=== PATIENT | male | born 1960 | race Caucasian/White ===

== ENCOUNTER → 2016-10-03 | Outpatient (CLI) | payer BC | LOC: MW.CHIM 07:40 | PROVIDERS: ATTEND Internal Medicine | DX: I10 Essential (primary) hypertension (principal); E11.9 Type 2 diabetes mellitus without complications; E29.1 Testicular hypofunction; N52.9 Male erectile dysfunction, unspecified | CPT/HCPCS: 36415; 80053; 80061; 83036; 84402; 84403; 85025; G0103 ==

== ENCOUNTER 2017-03-10 07:38 | Observation (INO) | payer BC ==
[2017-03-10] MEDS ORDERED: Sodium Chloride 0.9% 10 ML Syringe FLUSH PRN ×2 (07:47→10:42)
[2017-03-10] MEDS ORDERED: Nitroglycerin 0.4 MG Tab.SL SL STA (07:47)
[2017-03-10] MEDS ORDERED: Sodium Chloride 0.9% 2.5 ML Syringe FLUSH PRN ×3 (07:47→10:42)
[2017-03-10] MEDS ORDERED: Aspirin 81 MG Tab.Chew PO ONE (07:47)
[2017-03-10] MEDS ORDERED: Nitroglycerin 0.4 MG Tab.SL ONE (07:51)
[2017-03-10] MEDS ORDERED: Aspirin 81 MG Tab.Chew ONE (07:51)
[2017-03-10] MEDS ORDERED: Nitroglycerin 2% Oint 1 GM UD Packet TOP ONE (08:05)
--- NOTE | 2017-03-10 08:10 | EDM.PDOC ---
ED HPI GENERAL MEDICAL PROBLEM - General Chief Complaint: Chest Pain Stated Complaint: CHEST PAINS Time Seen by Provider: 03/10/17 07:57 - History of Present Illness INITIAL COMMENTS - FREE TEXT/NARRATIVE: HISTORY AND PHYSICAL: History of present illness: The patient is a 48-year-old male with a history of hypertension hypercholesterolemia and diabetes, insulin and oral medication controlled, with a history of 2 cardiac stents 20 years ago and who follows with our clinic physician, Dr. 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 The patient says that every morning he lifts weights every other day he writes his exercise bike, which he did this morning. When he woke he felt perfectly fine and then he did his exercises and again felt fine throughout the exercise. After he completed his exercise on the bike he got off and started experiencing the chest pressure midsternal nonradiating. It was associated with nausea but no vomiting and some shortness of breath. He says he has never experienced that before and does not have nitroglycerin at home. He says that when he has done his exercise the last few days he has not experienced this. He said the episode lasted about 30 minutes and when he arrived here he was having chest pain but on my interview he said discomfort was completely gone. He currently feels a little nauseated and internally upset but has no shortness of breath. He has had no recent upper respiratory infections or problems and has no pulmonary issues. He has been eating and drinking normally and has no GI issues. The patient denies any recent trauma leg pain swelling or any other systemic issues prior to this event. 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 Review of systems: As per history of present illness and below otherwise all systems reviewed and negative. Past medical history: As per history of present illness and as reviewed below otherwise noncontributory. Surgical history: As per history of present illness and as reviewed below otherwise noncontributory. Social history: No reported history of drug or alcohol abuse. Family history: As per history of present illness and as reviewed below otherwise noncontributory. Physical exam: Gen.: Well-developed well-nourished overweight male who is nontoxic and speaking clearly and easily in the ED. Vital signs of the note by me. HEENT: Atraumatic, normocephalic, negative for conjunctival pallor or scleral icterus, mucous membranes moist, throat clear, neck supple, nontender, trachea midline. Lungs: Clear to auscultation, breath sounds equal bilaterally, chest nontender. Heart: S1S2, regular, negative for clicks, rubs, or JVD. Abdomen: Soft, nondistended, nontender. Negative for masses or hepatosplenomegaly. Negative for costovertebral tenderness. Pelvis: Stable nontender. Genitourinary: Deferred. Rectal: Deferred. Extremities: Atraumatic, negative for cords or calf pain. Neurovascular unremarkable. No pedal edema or leg asymmetry Neuro: Awake, alert, oriented. Cranial nerves II through XII unremarkable. Cerebellum unremarkable. Motor and sensory unremarkable throughout. Exam nonfocal. Diagnostics: EKG chest x-ray CBC CMP INR troponin Therapeutics: IV O2 monitor aspirin, initially sublingual nitroglycerin was written for but the patient currently has no pain so we will hold, Nitropaste Please note that I have reviewed his labs today, BUN/creatinine and potassium, and if compared them with labs done over the last 2 years owing back to 2015. He is currently at his baseline for these numbers and there is no significant change when compared to these older blood tests. Patient continues to remain pain-free and his blood pressure has improved. I discussed all testing results with the patient and at bedside and the patient is agreeable for observation admission. I will discuss this case with Dr. Garcia and plan for admission Impression: Chest pain rule out ACS/episode of angina Definitive disposition and diagnosis as appropriate pending reevaluation and review of above. chest Pain Score (Numeric/FACES): 3 - Related Data Allergies Allergy/AdvReac Type Severity Reaction Status Date / Time Codeine Allergy Nervousness Uncoded 03/10/17 07:57 Home Meds: Home Meds Aspirin 1 tab PO DAILY 05/05/15 [History] ClonazePAM [KlonoPIN] 1 tab PO DAILY 05/05/15 [History] Escitalopram [Lexapro] 20 mg PO DAILY 05/05/15 [History] Lisinopril 1 tab PO DAILY 05/05/15 [History] atorvaSTATin [Lipitor] 1 tab PO DAILY 05/05/15 [History] glipiZIDE [Glucotrol XL] 10 mg PO BID 05/05/15 [History] metFORMIN HCl [Glucophage] 1,000 mg PO BID 05/05/15 [History] Insulin Aspart [NovoLOG] 0 unit SUBCUT ASDIRECTED 03/10/17 [History] Testosterone Cypionate [Depo-Testosterone] 0.5 ml IM WEEKLY 03/10/17 [History] Past Medical History Other HEENT History: Diminished hearing on RIGHT Cardiovascular History: Reports: High Cholesterol, Hypertension, Stents Other Musculoskeletal History: hx: Fracturing arm Other Neuro History: Right Carpal Tunnel Release Psychiatric History: Reports: Anxiety, Panic Attack Other Psychiatric History: past hx: panic attacks, since starte med regimen no problems Endocrine/Metabolic History: Reports: Diabetes, Type II - Past Surgical History Other Cardiovascular Surgeries/Procedures: 2 Stents placed about 20 yrs ago Other Musculoskeletal Surgeries/Procedures:: 3 Open Left knee surgeries, 2 Lt scopes, Right Knee Scope, Right open shoulder surgery, bilateral shoulder arthroscopies Social & Family History - Family History Family Medical History: Noncontributory - Recreational Drug Use Recreational Drug Use: No Drug Use in Last 12 Months: No ED ROS GENERAL - Review of Systems Review Of Systems: ROS reveals no pertinent complaints other than HPI. ED EXAM, GENERAL - Physical Exam Exam: See Below (See dictation) Course - Vital Signs Last Recorded V/S: Last Vital Signs Temp 36.2 C 03/10/17 07:38 Pulse 88 03/10/17 08:37 Resp 18 03/10/17 08:37 BP 148/73 H 03/10/17 08:37 Pulse Ox 95 03/10/17 08:37 - Orders/Labs/Meds Orders: Active Orders 24 hr Category Date Time Status Cardiac Monitoring [RC] . DIRECTED Care 03/10/17 07:47 Active EKG Documentation Completion [RC] STAT Care 03/10/17 07:47 Active Oxygen Therapy [RC] ASDIRECTED Care 03/10/17 07:47 Active Pulse Oximetry [RC] ASDIRECTED Care 03/10/17 07:47 Active Chest 1V Frontal [CR] Stat Exams 03/10/17 07:47 Taken Sodium Chloride 0.9% [Saline Flush] Med 03/10/17 07:47 Active 10 ml FLUSH ASDIRECTED PRN Sodium Chloride 0.9% [Saline Flush] Med 03/10/17 07:47 Active 2.5 ml FLUSH ASDIRECTED PRN Sodium Chloride 0.9% [Saline Flush] Med 03/10/17 07:47 Active 2.5 ml FLUSH ASDIRECTED PRN Saline Lock Insert [OM.PC] Stat Oth 03/10/17 07:47 Ordered Medication Orders Sodium Chloride (Saline Flush) 2.5 ml FLUSH ASDIRECTED PRN PRN Reason: Keep Vein Open Sodium Chloride (Saline Flush) 10 ml FLUSH ASDIRECTED PRN PRN Reason: Keep Vein Open Sodium Chloride (Saline Flush) 2.5 ml FLUSH ASDIRECTED PRN PRN Reason: Keep Vein Open Labs: Laboratory Tests 03/10/17 03/10/17 03/10/17 Range/Units 07:45 07:45 07:45 WBC 9.79 (4.0-11.0) K/uL RBC 5.79 (4.50-5.90) M/uL Hgb 17.7 H (13.0-17.0) g/dL Hct 51.0 H (38.0-50.0) % MCV 88.1 (80.0-98.0) fL MCH 30.6 (27.0-32.0) pg MCHC 34.7 (31.0-37.0) g/dL RDW Std Deviation 44.9 (28.0-62.0) fl RDW Coeff of Narda 14 (11.0-15.0) % Plt Count 268 (150-400) K/uL MPV 10.10 (7.40-12.00) fL Neut % (Auto) 61.4 (48.0-80.0) % Lymph % (Auto) 21.5 (16.0-40.0) % [place] % (Auto) 11.8 (0.0-15.0) % Eos % (Auto) 4.4 (0.0-7.0) % Baso % (Auto) 0.9 (0.0-1.5) % Neut # (Auto) 6.0 H (1.4-5.7) K/uL Lymph # (Auto) 2.1 (0.6-2.4) K/uL [place] # (Auto) 1.2 H (0.0-0.8) K/uL Eos # (Auto) 0.4 (0.0-0.7) K/uL Baso # (Auto) 0.1 (0.0-0.1) K/uL Nucleated RBC % 0.0 /100WBC Nucleated RBCs # 0 K/uL INR 1.06 (0.86-1.11) Sodium 138 (136-146) mmol/L Potassium 5.4 H (3.5-5.1) mmol/L Chloride 107 (98-110) mmol/L Carbon Dioxide 22 (21-31) mmol/L BUN 28 H (6.0-23.0) mg/dL Creatinine 1.7 H (0.6-1.5) mg/dL Est Cr Clr Drug Dosing 45.82 mL/min Estimated GFR (MDRD) 41.6 ml/min Glucose 201 H (60-110) mg/dL Calcium 9.9 (8.8-10.8) mg/dL Total Bilirubin 0.4 (0.1-1.5) mg/dL AST 26 (5-40) IU/L ALT 31 (8-54) IU/L Alkaline Phosphatase 46 (40-150) Troponin I (0.0-0.29) NG/ML Total Protein 7.1 (6.0-8.0) g/dL Albumin 4.0 (3.5-5.0) g/dL Globulin 3.1 (2.0-3.5) g/dL Albumin/Globulin Ratio 1.3 (1.3-2.8) 03/10/17 Range/Units 07:45 WBC (4.0-11.0) K/uL RBC (4.50-5.90) M/uL Hgb (13.0-17.0) g/dL Hct (38.0-50.0) % MCV (80.0-98.0) fL MCH (27.0-32.0) pg MCHC (31.0-37.0) g/dL RDW Std Deviation (28.0-62.0) fl RDW Coeff of Narda (11.0-15.0) % Plt Count (150-400) K/uL MPV (7.40-12.00) fL Neut % (Auto) (48.0-80.0) % Lymph % (Auto) (16.0-40.0) % [place] % (Auto) (0.0-15.0) % Eos % (Auto) (0.0-7.0) % Baso % (Auto) (0.0-1.5) % Neut # (Auto) (1.4-5.7) K/uL Lymph # (Auto) (0.6-2.4) K/uL [place] # (Auto) (0.0-0.8) K/uL Eos # (Auto) (0.0-0.7) K/uL Baso # (Auto) (0.0-0.1) K/uL Nucleated RBC % /100WBC Nucleated RBCs # K/uL INR (0.86-1.11) Sodium (136-146) mmol/L Potassium (3.5-5.1) mmol/L Chloride (98-110) mmol/L Carbon Dioxide (21-31) mmol/L BUN (6.0-23.0) mg/dL Creatinine (0.6-1.5) mg/dL Est Cr Clr Drug Dosing mL/min Estimated GFR (MDRD) ml/min Glucose (60-110) mg/dL Calcium (8.8-10.8) mg/dL Total Bilirubin (0.1-1.5) mg/dL AST (5-40) IU/L ALT (8-54) IU/L Alkaline Phosphatase (40-150) Troponin I < 0.10 (0.0-0.29) NG/ML Total Protein (6.0-8.0) g/dL Albumin (3.5-5.0) g/dL Globulin (2.0-3.5) g/dL Albumin/Globulin Ratio (1.3-2.8) Meds: Medications Generic Name Dose Route Start Last Admin Trade Name Freq PRN Reason Stop Dose Admin Sodium Chloride 2.5 ml 03/10/17 07:47 Saline Flush FLUSH ASDIRECTED PRN Keep Vein Open Sodium Chloride 10 ml 03/10/17 07:47 Saline Flush FLUSH ASDIRECTED PRN Keep Vein Open Sodium Chloride 2.5 ml 03/10/17 07:47 Saline Flush FLUSH ASDIRECTED PRN Keep Vein Open Discontinued Medications Generic Name Dose Route Start Last Admin Trade Name Freq PRN Reason Stop Dose Admin Aspirin 324 mg 03/10/17 07:47 03/10/17 07:54 Aspirin PO 03/10/17 07:48 324 mg ONETIME ONE Administration Aspirin Confirm 03/10/17 07:51 03/10/17 08:15 Aspirin Administered 03/10/17 07:52 Not Given Dose 324 mg .ROUTE .STK-MED ONE Nitroglycerin 0.4 mg 03/10/17 07:47 Nitrostat SL 03/10/17 07:48 Q5M STA Nitroglycerin Confirm 03/10/17 07:51 03/10/17 08:15 Nitrostat Administered 03/10/17 07:52 Not Given Dose 1.2 mg .ROUTE .STK-MED ONE Nitroglycerin 1 gm 03/10/17 08:05 03/10/17 08:13 Nitro-Bid 2% TOP 03/10/17 08:06 1 gm ONETIME ONE Administration Departure - Departure Time of Disposition: 09:02 Disposition: Refer to Observation Condition: Good Clinical Impression: Acute coronary syndrome - Discharge Information Referrals: Richard Garcia DO [Primary Care Provider] - Forms: ED Department Discharge - My Orders Last 24 Hours: My Active Orders 03/10/17 07:47 Cardiac Monitoring [RC] . DIRECTED EKG Documentation Completion [RC] STAT Oxygen Therapy [RC] ASDIRECTED Pulse Oximetry [RC] ASDIRECTED Chest 1V Frontal [CR] Stat Sodium Chloride 0.9% [Saline Flush] 10 ml FLUSH ASDIRECTED PRN Sodium Chloride 0.9% [Saline Flush] 2.5 ml FLUSH ASDIRECTED PRN Sodium Chloride 0.9% [Saline Flush] 2.5 ml FLUSH ASDIRECTED PRN Saline Lock Insert [OM.PC] Stat - Assessment/Plan Last 24 Hours: My Active Orders 03/10/17 07:47 Cardiac Monitoring [RC] . DIRECTED EKG Documentation Completion [RC] STAT Oxygen Therapy [RC] ASDIRECTED Pulse Oximetry [RC] ASDIRECTED Chest 1V Frontal [CR] Stat Sodium Chloride 0.9% [Saline Flush] 10 ml FLUSH ASDIRECTED PRN Sodium Chloride 0.9% [Saline Flush] 2.5 ml FLUSH ASDIRECTED PRN Sodium Chloride 0.9% [Saline Flush] 2.5 ml FLUSH ASDIRECTED PRN Saline Lock Insert [OM.PC] Stat
--- NOTE | 2017-03-10 10:41 | PCM.HP ---
H&P History of Present Illness - General Date of Service: 03/10/17 Admit Problem/Dx: Admission Diagnosis/Problem Admission Diagnosis/Problem Acute coronary syndrome Source of Information: Patient History Limitations: Reports: No Limitations - History of Present Illness Initial Comments - Free Text/Narative: The patient is a 56-year-old gentleman who presented to the emergency room after sudden onset of chest pain and pressure. Patient says that the pain was located specifically in the sternal area and did not radiate. The patient said that the pain had resolved prior to use of nitroglycerin. Patient also has some diaphoresis associated with this. The patient does have a significant history of urinary artery disease with stenting years ago. The patient said that the pain started after he was working out at home with weights and after he had finished his workout the pain started. The patient has been in his usual state of health. He is a diabetic. Patient says that the pain was not similar to his previous heart attack. Onset of Symptoms: Reports: Today Duration of Symptoms: Reports: Hour(s):, Improving Location: Reports: Chest Quality: Reports: Pressure, Throbbing Severity: Moderate Improves with: Reports: Rest Worsens with: Reports: Movement Context: Reports: Activity/Exercise Associated Symptoms: Reports: Diaphoresis chest Pain Score (Numeric/FACES): 3 - Related Data Allergies/Adverse Reactions: Allergies Allergy/AdvReac Type Severity Reaction Status Date / Time Codeine Allergy Nervousness Uncoded 03/10/17 07:57 Home Medications: Home Meds Aspirin 1 tab PO DAILY 05/05/15 [History] ClonazePAM [KlonoPIN] 1 tab PO DAILY 05/05/15 [History] Escitalopram [Lexapro] 20 mg PO DAILY 05/05/15 [History] Lisinopril 1 tab PO DAILY 05/05/15 [History] atorvaSTATin [Lipitor] 1 tab PO DAILY 05/05/15 [History] glipiZIDE [Glucotrol XL] 10 mg PO BID 05/05/15 [History] metFORMIN HCl [Glucophage] 1,000 mg PO BID 05/05/15 [History] Insulin Aspart [NovoLOG] 2 unit SUBCUT ASDIRECTED 03/10/17 [History] Testosterone Cypionate [Depo-Testosterone] 0.5 ml IM WEEKLY 03/10/17 [History] Past Medical History Other HEENT History: Diminished hearing on RIGHT Cardiovascular History: Reports: High Cholesterol, Hypertension, Stents Respiratory History: Reports: None Gastrointestinal History: Reports: None Genitourinary History: Reports: None Other Musculoskeletal History: hx: Fracturing arm Other Neuro History: Right Carpal Tunnel Release Psychiatric History: Reports: Anxiety, Panic Attack Other Psychiatric History: past hx: panic attacks, since starte med regimen no problems Endocrine/Metabolic History: Reports: Diabetes, Type II Hematologic History: Reports: None - Past Surgical History Other Cardiovascular Surgeries/Procedures: 2 Stents placed about 20 yrs ago Other Musculoskeletal Surgeries/Procedures:: 3 Open Left knee surgeries, 2 Lt scopes, Right Knee Scope, Right open shoulder surgery, bilateral shoulder arthroscopies Social & Family History - Family History Family Medical History: Noncontributory Endocrine/Metabolic: Reports: Diabetes, type II - Tobacco Use Smoking Status *Q: Never Smoker Second Hand Smoke Exposure: No - Caffeine Use Caffeine Use: Reports: Coffee - Recreational Drug Use Recreational Drug Use: No Drug Use in Last 12 Months: No - Living Situation & Occupation Living situation: Reports: H&P Review of Systems - Review of Systems: Review Of Systems: See Below General: Reports: No Symptoms HEENT: Reports: No Symptoms Pulmonary: Reports: No Symptoms Cardiovascular: Reports: Chest Pain Gastrointestinal: Reports: No Symptoms Genitourinary: Reports: No Symptoms Musculoskeletal: Reports: No Symptoms Skin: Reports: No Symptoms Psychiatric: Reports: No Symptoms Neurological: Reports: No Symptoms Hematologic/Lymphatic: Reports: No Symptoms Immunologic: Reports: No Symptoms Exam - Exam Exam: See Below - Vital Signs Vital Signs: Last Vital Signs Temp 36.4 C 03/10/17 09:36 Pulse 70 03/10/17 09:36 Resp 18 03/10/17 09:36 BP 167/96 H 03/10/17 09:51 Pulse Ox 96 03/10/17 09:36 Weight: 116.2 kg - Exam Quality Assessment: No: Supplemental Oxygen General: Alert, Oriented, Cooperative HEENT: Conjunctiva Clear, EACs Clear, Mucosa Moist & [place], Nares Patent Neck: Supple, Trachea Midline Lungs: Clear to Auscultation, Normal Respiratory Effort Cardiovascular: Regular Rate, Regular Rhythm, Other (Nontender chest wall) GI/Abdominal Exam: Normal Bowel Sounds, Soft, No Distention Back Exam: Normal Inspection Extremities: Normal Inspection, No Pedal Edema Skin: Warm, Dry, Intact Neurological: Cranial Nerves Intact Neuro Extensive - Motor, Sensory, Reflexes: CN II-XII Intact Psychiatric: Alert, Normal Affect - Patient Data Result Diagrams: 03/11/17 04:58 03/11/17 04:58 *Q Meaningful Use (ADM) - VTE *Q VTE Criteria *Q: - VTE Risk Assess *Q Each Risk Factor Represents 1 Point: Age 41 - 59 years, Obesity (BMI greater than 30) Total Score 1 Point Risk Factors: 2 - Stroke *Q Stroke Criteria *Q: - AMI *Q AMI Criteria *Q: - Problem List (1) Acute coronary syndrome SNOMED Code(s): 414474694 ICD Code: I24.9 - ACUTE ISCHEMIC HEART DISEASE, UNSPECIFIED Status: Acute Priority: High Current Visit: Yes (2) Diabetes mellitus type II, controlled SNOMED Code(s): 48984732 ICD Code: E11.9 - TYPE 2 DIABETES MELLITUS WITHOUT COMPLICATIONS Status: Chronic Priority: Medium Current Visit: Yes Qualifiers: Diabetes mellitus complication status: without complication 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 insulin use: without jail use Qualified Code(s): E11.9 - Type 2 diabetes mellitus without complications (3) Obesity SNOMED Code(s): 451944616 ICD Code: E66.9 - OBESITY, UNSPECIFIED Status: Chronic Priority: Medium Current Visit: Yes Qualifiers: Body mass index: BMI 38.0-38.9 (4) Hypertension SNOMED Code(s): 05317369 ICD Code: I10 - ESSENTIAL (PRIMARY) HYPERTENSION Status: Chronic Priority : High Current Visit: Yes Qualifiers: Hypertension type: essential hypertension Qualified Code(s): I10 - Essential (primary) hypertension Problem List Initiated/Reviewed/Updated: Yes Orders Last 24hrs: Medication Orders Sodium Chloride (Saline Flush) 2.5 ml FLUSH ASDIRECTED PRN PRN Reason: Keep Vein Open Sodium Chloride (Saline Flush) 10 ml FLUSH ASDIRECTED PRN PRN Reason: Keep Vein Open Sodium Chloride (Saline Flush) 2.5 ml FLUSH ASDIRECTED PRN PRN Reason: Keep Vein Open Assessment/Plan Comment:: The patient is a 56-year-old gentleman who does have a history of diabetes and a significant history of cardiac disease in the past. Patient has been doing well to improve his situation with the use of exercise and control of his diabetes. The patient will be admitted for observation status to rule out acute coronary syndrome. Serial troponins will be completed. The patient will be kept on telemetry. He will be afforded a diabetic, cardiac diet. If the patient has had significant improvement and is pain-free and testing is otherwise negative he'll be discharged in the morning. Because of his history he is also strongly recommended to have an outpatient stress test.
[2017-03-10] MEDS ORDERED: Acetaminophen 325 MG Tab PO PRN (10:42)
[2017-03-10] MEDS ORDERED: oxyCODONE 5 MG Tab PO PRN (10:42)
[2017-03-10] MEDS ORDERED: Morphine 2 MG/ML Syringe IVPUSH PRN (10:42)
[2017-03-10] MEDS ORDERED: Ondansetron 4 MG Tab.DIS PO PRN (10:42)
[2017-03-10] MEDS ORDERED: Temazepam 15 MG Cap PO PRN (10:42)
--- NOTE | 2017-03-10 10:45 | CR ---
EXAM DATE: 03/10/17 PATIENT'S AGE: 56 Patient: GERSON BEARD Facility: [place], [place] Site . Site : 1960 Study: XRay Chest [id number]/8/2017 8:19:41 AM Ordering Physician: Doctor Isaac Final Report: HISTORY: Chest pain. TECHNIQUE: One view of the chest. COMPARISON: No prior. FINDINGS: Cardiac size and pulmonary vasculature are within normal limits. Low lung volumes. No consolidation or pulmonary edema. No pneumothorax or pleural effusion. IMPRESSION: No acute disease. Dictated by Presley Guerra MD @ 03/10/2017 8:42:13 AM Dictated by: Presley Guerra MD @ 03/10/2017 08:42:18 (Electronic Signature) Report Signed by Proxy. [facility]
[2017-03-10] MEDS: metFORMIN 500 MG Tab PO SCH (16:43)
[2017-03-10] MEDS: glipiZIDE 5 MG Tab.ER PO SCH (16:43)
[2017-03-11] MEDS: glipiZIDE 5 MG Tab.ER PO SCH (08:12)
[2017-03-11] MEDS: metFORMIN 500 MG Tab PO SCH (08:13)
[2017-03-11 08:34] VITALS: BP 161/86
[2017-03-11] MEDS ORDERED: Lisinopril 10 MG Tab PO SCH (09:00)
[2017-03-11] MEDS ORDERED: Escitalopram 10 MG Tab PO SCH (09:00)
[2017-03-11] MEDS ORDERED: ClonazePAM 0.5 MG Tab PO SCH (09:00)
--- NOTE | 2017-03-11 09:51 | PCM.DCSUM1 ---
Discharge Summary - Hospital Course Brief History: The patient was admitted secondary to atypical chest pain and he has a history of coronary artery disease. - Discharge Data Discharge Date: 03/11/17 Discharge Disposition: Home, Self-Care 01 Condition: Good - Discharge Diagnosis/Problem(s) (1) Acute coronary syndrome SNOMED Code(s): 552519646 ICD Code: I24.9 - ACUTE ISCHEMIC HEART DISEASE, UNSPECIFIED Status: Chronic Priority: High Current Visit: Yes Problem Details: Recommend outpatient stress test as soon as possible (2) Diabetes mellitus type II, controlled SNOMED Code(s): 92980768 ICD Code: E11.9 - TYPE 2 DIABETES MELLITUS WITHOUT COMPLICATIONS Status: Chronic Priority: Medium Current Visit: Yes Qualifiers: Diabetes mellitus complication status: without complication Diabetes mellitus lining layer insulin use: without intermediate use Qualified Code(s): E11.9 - Type 2 diabetes mellitus without complications (3) Obesity SNOMED Code(s): 175549031 ICD Code: E66.9 - OBESITY, UNSPECIFIED Status: Chronic Priority: Medium Current Visit: Yes Qualifiers: Body mass index: BMI 38.0-38.9 (4) Hypertension SNOMED Code(s): 19215365 ICD Code: I10 - ESSENTIAL (PRIMARY) HYPERTENSION Status: Chronic Priority : High Current Visit: Yes Qualifiers: Hypertension type: essential hypertension Qualified Code(s): I10 - Essential (primary) hypertension - Patient Summary/Data Hospital Course: The patient is a 56-year-old gentleman who was admitted yesterday secondary to atypical chest pain that occurred after his workout. The patient does have a history of coronary artery disease, diabetes and hypertension. The patient was monitored very closely his EKG did not show any signs of changes. The patient's troponins were negative 3. He was able to tolerate his diet. The patient is currently pain-free and has no complaints today. I have recommended that the patient follow-up with primary care physician and obtain a nuclear medicine stress test as soon as possible. The patient is discharged today with the recommendation to continue activity as tolerated. The patient also has been advised to return to the emergency department if chest pain recurs or does not resolve. Patient is to continue with all of his medications as prescribed. I've also recommended that the patient have his activity as tolerated. - Patient Instructions Diet: Diabetic Diet Activity: As Tolerated Driving: May Drive Today Notify Provider of: Increased Pain - Discharge Plan Home Medications: Home Meds Aspirin 1 tab PO DAILY 05/05/15 [History] ClonazePAM [KlonoPIN] 1 tab PO DAILY 05/05/15 [History] Escitalopram [Lexapro] 20 mg PO DAILY 05/05/15 [History] Lisinopril 1 tab PO DAILY 05/05/15 [History] atorvaSTATin [Lipitor] 1 tab PO DAILY 05/05/15 [History] glipiZIDE [Glucotrol XL] 10 mg PO BID 05/05/15 [History] metFORMIN HCl [Glucophage] 1,000 mg PO BID 05/05/15 [History] Insulin Aspart [NovoLOG] 2 unit SUBCUT ASDIRECTED 03/10/17 [History] Testosterone Cypionate [Depo-Testosterone] 0.5 ml IM WEEKLY 03/10/17 [History] Escitalopram [Lexapro] 20 mg PO DAILY tablet 03/11/17 [Rx] Patient Handouts: Acute Coronary Syndrome Referrals: Richard Garcia DO [Primary Care Provider] - 03/20/17 11:30 am - Discharge Summary/Plan Comment DC Time >30 min.: Yes - Patient Data Vitals - Most Recent: Last Vital Signs Temp 35.3 C 03/11/17 08:00 Pulse 88 03/11/17 08:00 Resp 14 03/11/17 08:00 BP 149/85 H 03/11/17 08:17 Pulse Ox 95 03/11/17 08:00 Weight - Most Recent: 116.2 kg I&O - Last 24 hours: Intake & Output 03/10/17 03/11/17 03/11/17 22:59 06:59 14:59 Intake Total 840 1640 Output Total 780 1625 Balance 60 15 Lab Results - Last 24 hrs: Laboratory Results - last 24 hr 03/10/17 03/10/17 03/10/17 Range/Units 13:57 13:57 19:22 WBC (4.0-11.0) K/uL RBC (4.50-5.90) M/uL Hgb (13.0-17.0) g/dL Hct (38.0-50.0) % MCV (80.0-98.0) fL MCH (27.0-32.0) pg MCHC (31.0-37.0) g/dL RDW Std Deviation (28.0-62.0) fl RDW Coeff of Narda (11.0-15.0) % Plt Count (150-400) K/uL MPV (7.40-12.00) fL Neut % (Auto) (48.0-80.0) % Lymph % (Auto) (16.0-40.0) % [place] % (Auto) (0.0-15.0) % Eos % (Auto) (0.0-7.0) % Baso % (Auto) (0.0-1.5) % Neut # (Auto) (1.4-5.7) K/uL Lymph # (Auto) (0.6-2.4) K/uL [place] # (Auto) (0.0-0.8) K/uL Eos # (Auto) (0.0-0.7) K/uL Baso # (Auto) (0.0-0.1) K/uL Nucleated RBC % /100WBC Nucleated RBCs # K/uL Sodium 137 (136-146) mmol/L Potassium 5.1 (3.5-5.1) mmol/L Chloride 107 (98-110) mmol/L Carbon Dioxide 22 (21-31) mmol/L BUN 27 H (6.0-23.0) mg/dL Creatinine 1.6 H (0.6-1.5) mg/dL Est Cr Clr Drug Dosing 48.69 mL/min Estimated GFR (MDRD) 44.6 ml/min Glucose 176 H (60-110) mg/dL Calcium 9.6 (8.8-10.8) mg/dL Total Bilirubin 0.4 (0.1-1.5) mg/dL AST 23 (5-40) IU/L ALT 29 (8-54) IU/L Alkaline Phosphatase 44 (40-150) Troponin I < 0.10 < 0.10 (0.0-0.29) NG/ML Total Protein 6.5 (6.0-8.0) g/dL Albumin 3.8 (3.5-5.0) g/dL Globulin 2.7 (2.0-3.5) g/dL Albumin/Globulin Ratio 1.4 (1.3-2.8) 03/11/17 03/11/17 Range/Units 04:58 04:58 WBC 11.52 H (4.0-11.0) K/uL RBC 6.02 H (4.50-5.90) M/uL Hgb 18.2 H (13.0-17.0) g/dL Hct 54.2 H (38.0-50.0) % MCV 90.0 (80.0-98.0) fL MCH 30.2 (27.0-32.0) pg MCHC 33.6 (31.0-37.0) g/dL RDW Std Deviation 46.5 (28.0-62.0) fl RDW Coeff of Narda 14 (11.0-15.0) % Plt Count 243 (150-400) K/uL MPV 9.80 (7.40-12.00) fL Neut % (Auto) 53.5 (48.0-80.0) % Lymph % (Auto) 31.3 (16.0-40.0) % [place] % (Auto) 9.9 (0.0-15.0) % Eos % (Auto) 4.3 (0.0-7.0) % Baso % (Auto) 1.0 (0.0-1.5) % Neut # (Auto) 6.2 H (1.4-5.7) K/uL Lymph # (Auto) 3.6 H (0.6-2.4) K/uL [place] # (Auto) 1.1 H (0.0-0.8) K/uL Eos # (Auto) 0.5 (0.0-0.7) K/uL Baso # (Auto) 0.1 (0.0-0.1) K/uL Nucleated RBC % 0.0 /100WBC Nucleated RBCs # 0 K/uL Sodium 141 (136-146) mmol/L Potassium 4.9 (3.5-5.1) mmol/L Chloride 106 (98-110) mmol/L Carbon Dioxide 25 (21-31) mmol/L BUN 24 H (6.0-23.0) mg/dL Creatinine 1.5 (0.6-1.5) mg/dL Est Cr Clr Drug Dosing 51.93 mL/min Estimated GFR (MDRD) 48.1 ml/min Glucose 77 (60-110) mg/dL Calcium 10.3 (8.8-10.8) mg/dL Total Bilirubin (0.1-1.5) mg/dL AST (5-40) IU/L ALT (8-54) IU/L Alkaline Phosphatase (40-150) Troponin I (0.0-0.29) NG/ML Total Protein (6.0-8.0) g/dL Albumin (3.5-5.0) g/dL Globulin (2.0-3.5) g/dL Albumin/Globulin Ratio (1.3-2.8) Med Orders - Current: Current Medications Acetaminophen (Tylenol) 650 mg PO Q4H PRN PRN Reason: Pain (Mild 1-3)/fever Clonazepam (Klonopin) 0.5 mg PO DAILY [facility] Last Admin: 03/11/17 08:14 Dose: 0.5 mg Escitalopram Oxalate (Lexapro) 20 mg PO DAILY [facility] Last Admin: 03/11/17 08:15 Dose: 20 mg Glipizide (Glucotrol Xl) 10 mg PO BIDMEALS [facility] Last Admin: 03/11/17 08:12 Dose: 10 mg Lisinopril (Prinivil) 20 mg PO DAILY [facility] Last Admin: 03/11/17 08:17 Dose: 20 mg Metformin HCl (Glucophage) 1,000 mg PO BIDMEALS [facility] Last Admin: 03/11/17 08:13 Dose: 1,000 mg Morphine Sulfate (Morphine) 2 mg IVPUSH Q2H PRN PRN Reason: Pain (severe 7-10) Stop: 03/11/17 10:45 Ondansetron HCl (Zofran Odt) 4 mg PO Q6H PRN PRN Reason: nausea, able to take PO Oxycodone HCl (Oxycodone) 5 mg PO Q4H PRN PRN Reason: Pain (moderate 4-6) Sodium Chloride (Saline Flush) 2.5 ml FLUSH ASDIRECTED PRN PRN Reason: Keep Vein Open Sodium Chloride (Saline Flush) 10 ml FLUSH ASDIRECTED PRN PRN Reason: Keep Vein Open Sodium Chloride (Saline Flush) 2.5 ml FLUSH ASDIRECTED PRN PRN Reason: Keep Vein Open Sodium Chloride (Saline Flush) 10 ml FLUSH ASDIRECTED PRN PRN Reason: Keep Vein Open Sodium Chloride (Saline Flush) 2.5 ml FLUSH ASDIRECTED PRN PRN Reason: Keep Vein Open Temazepam (Restoril) 15 mg PO BEDTIME PRN PRN Reason: Sleep Discontinued Medications Aspirin (Aspirin) 324 mg PO ONETIME ONE Stop: 03/10/17 07:48 Last Admin: 03/10/17 07:54 Dose: 324 mg Aspirin (Aspirin) Confirm Administered Dose 324 mg .ROUTE .STK-MED ONE Stop: 03/10/17 07:52 Last Admin: 03/10/17 08:15 Dose: Not Given Nitroglycerin (Nitrostat) 0.4 mg SL Q5M STA Stop: 03/10/17 07:48 Last Admin: 03/10/17 09:51 Dose: Not Given Nitroglycerin (Nitrostat) Confirm Administered Dose 1.2 mg .ROUTE .STK-MED ONE Stop: 03/10/17 07:52 Last Admin: 03/10/17 08:15 Dose: Not Given Nitroglycerin (Nitro-Bid 2%) 1 gm TOP ONETIME ONE Stop: 03/10/17 08:06 Last Admin: 03/10/17 08:13 Dose: 1 gm *Q Meaningful Use (DIS) - VTE *Q VTE Criteria *Q: - Stroke *Q Stroke Criteria *Q: - AMI *Q AMI Criteria *Q:
== END 2017-03-11 10:45 | disposition home or self-care (01) ==
LOC: MW.ED 07:38 → MW.MS 09:02
PROVIDERS: ADMIT Internal Medicine; ATTEND Internal Medicine
DX: R07.89 Other chest pain (principal); E11.9 Type 2 diabetes mellitus without complications; E66.9 Obesity, unspecified; I10 Essential (primary) hypertension; I25.10 Atherosclerotic heart disease of native coronary artery without angina pectoris; E78.00 Pure hypercholesterolemia, unspecified; F41.9 Anxiety disorder, unspecified; Z79.82 Long term (current) use of aspirin; Z79.84 Long term (current) use of oral hypoglycemic drugs; Z79.899 Other long term (current) drug therapy; Z98.890 Other specified postprocedural states; Z68.38 Body mass index [BMI] 38.0-38.9, adult
CPT/HCPCS: 36415; 71010; 80048; 80053; 84484; 85025; 85610; 93005; 99285; A9270; G0378; 99283

== ENCOUNTER 2018-03-23 07:55 | Emergency (ER) | payer BC ==
--- NOTE | 2018-03-23 08:00 | EDM.PDOC ---
ED HPI GENERAL MEDICAL PROBLEM - General Stated Complaint: INFECTED RIGHT FOOT Time Seen by Provider: 03/23/18 08:00 Source of Information: Reports: Patient History Limitations: Reports: No Limitations - History of Present Illness INITIAL COMMENTS - FREE TEXT/NARRATIVE: HISTORY AND PHYSICAL: History of present illness: 57-year-old male presenting to emergency department with chief complaint of 3 days of right foot pain, swelling and fevers with past medical history hypertensio of type 2 diabetes, hypertension, and hyperlipidemia. Patient states that the night before yesterday, approximately 3 days ago, he began to have severe pain and swelling in his right foot. States that he was [place] [employer] [place] so was unable to seek medical attention until today. He does have some associated fever and chills with nausea but no vomiting. He has never had similar episodes in the past. He denies any hemoptysis, chest pain, shortness breath, or history of coagulation disorders. Does state that he has 2 stents. As above he is a type II diabetic but does have an insulin pump and states he has fairly good control. He does see Dr. Garcia as his PCP. States that he is able to walk on extremity however it is severely painful. Denies any history osteomyelitis, denies any chest pain, palpitations, shortness of breath, syncopal episodes, or focal neurologic deficits. Her pain is 8 out of 10 worse with walking and weightbearing. On examination patient is comfortable, there is erythema to the right great toe as well as a quarter size ulceration on the plantar surface at the base of the right great toe. Surrounding erythema on left half of foot involving bottom and top reaching just below the ankle. Involved area was demarcated with pen and dated and signed. Afebrile on presentation. Initial CBC shows mild leukocytosis of 11.8. CMP does show chronic kidney disease as patient's creatinine is elevated however this seems to be his baseline looking at previous. CRP was also elevated at 6.8. Lactate normal. Cultures pending. We did start 1 g of vancomycin. Right foot x-ray was unremarkable for signs of osteomyelitis. ESR unremarkable. Review of systems: As per history of present illness and below otherwise all systems reviewed and negative. Past medical history: As per history of present illness and as reviewed below otherwise noncontributory. Surgical history: As per history of present illness and as reviewed below otherwise noncontributory. Social history: No reported history of drug or alcohol abuse. Family history: As per history of present illness and as reviewed below otherwise noncontributory. Physical exam: HEENT: Atraumatic, normocephalic, pupils reactive, negative for conjunctival pallor or scleral icterus, mucous membranes moist, throat clear, neck supple, nontender, trachea midline. Lungs: Clear to auscultation, breath sounds equal bilaterally, chest nontender. Heart: S1S2, regular, negative for clicks, rubs, or JVD. Abdomen: Soft, nondistended, nontender. Negative for masses or hepatosplenomegaly. Negative for costovertebral tenderness. Pelvis: Stable nontender. Genitourinary: Deferred. Rectal: Deferred. Extremities: See above H&P, negative for cords or calf pain. Neurovascular unremarkable. Neuro: Awake, alert, oriented. Cranial nerves II through XII unremarkable. Cerebellum unremarkable. Motor and sensory unremarkable throughout. Exam nonfocal. Diagnostics: CBC, CMP, CRP, ESR, right foot x-ray Therapeutics: 1 L normal saline 1, 2 mg IV morphine 1, TdaP, vancomycin 1 g IV, Impression: Right foot pain Cellulitis Plan: Patient was given vancomycin 1 g in the emergency department and discharged with a prescription for clindamycin 450 mg by mouth every 6 hours 7 days. He is going to follow-up with his primary care provider Dr. Frank and plans to call him today. CBC only showed mild leukocytosis of 11,000. Patient did have mild hyperkalemia as well as signs of chronic kidney disease but seems stable baseline as this compared to previous levels. He was given 1 L normal saline secondary to mild dehydration from recent hunting trip. Lactate was unremarkable as was ESR. Right foot x-ray showed no significant findings suggestive of osteomyelitis. He was instructed to follow-up with his primary care provider and return to emergency department if any new or worsening symptoms. He was also given [place] 5-325mg PO q 4-6hrs prn pain #12. Definitive disposition and diagnosis as appropriate pending reevaluation and review of above. Right Feet Pain Score (Numeric/FACES): 8 - Related Data Allergies Allergy/AdvReac Type Severity Reaction Status Date / Time Codeine Allergy Nervousness Uncoded 03/10/17 07:57 Home Meds: Home Meds Aspirin 325 mg PO DAILY 05/05/15 [History] ClonazePAM [KlonoPIN] 0.5 mg PO DAILY 05/05/15 [History] Escitalopram [Lexapro] 20 mg PO DAILY 05/05/15 [History] Lisinopril 20 mg PO DAILY 05/05/15 [History] atorvaSTATin [Lipitor] 20 mg PO DAILY 05/05/15 [History] metFORMIN HCl [Glucophage] 1,000 mg PO BID 05/05/15 [History] Insulin Aspart [NovoLOG] 2 unit SUBCUT ASDIRECTED 03/10/17 [History] Empagliflozin [Jardiance] 10 mg 03/23/18 [History] Metoprolol Tartrate 25 mg DAILY 03/23/18 [History] Ranolazine [Ranexa] 500 mg BID 03/23/18 [History] Past Medical History Other HEENT History: Diminished hearing on RIGHT Cardiovascular History: Reports: High Cholesterol, Hypertension, Stents Respiratory History: Reports: None Gastrointestinal History: Reports: None Genitourinary History: Reports: None Other Musculoskeletal History: hx: Fracturing arm Other Neuro History: Right Carpal Tunnel Release Psychiatric History: Reports: Anxiety, Panic Attack Other Psychiatric History: past hx: panic attacks, since starte med regimen no problems Endocrine/Metabolic History: Reports: Diabetes, Type II Hematologic History: Reports: None - Past Surgical History Other Cardiovascular Surgeries/Procedures: 2 Stents placed about 20 yrs ago Other Musculoskeletal Surgeries/Procedures:: 3 Open Left knee surgeries, 2 Lt scopes, Right Knee Scope, Right open shoulder surgery, bilateral shoulder arthroscopies Social & Family History - Family History Family Medical History: Noncontributory Endocrine/Metabolic: Reports: Diabetes, type II - Caffeine Use Caffeine Use: Reports: Coffee - Living Situation & Occupation Living situation: Reports: ED ROS GENERAL - Review of Systems Review Of Systems: ROS reveals no pertinent complaints other than HPI. ED EXAM, GENERAL - Physical Exam Exam: See Below Course - Vital Signs Last Recorded V/S: Last Vital Signs Temp 97.1 F 03/23/18 08:20 Pulse 85 03/23/18 08:20 Resp 18 03/23/18 08:20 BP 153/87 H 03/23/18 08:20 Pulse Ox 97 03/23/18 08:20 - Orders/Labs/Meds Orders: Active Orders 24 hr Category Date Time Status Vaccines to be Administered [RC] PER UNIT ROUTINE Care 03/23/18 08:39 Active CULTURE BLOOD [BC] Stat Lab 03/23/18 09:07 Received CULTURE BLOOD [BC] Stat Lab 03/23/18 09:20 Received Blood Culture x2 Reflex Set [OM.PC] Stat Oth 03/23/18 09:00 Ordered Labs: Laboratory Tests 03/23/18 03/23/18 03/23/18 Range/Units 08:24 08:24 09:07 WBC 11.80 H (4.0-11.0) K/uL RBC 6.52 H (4.50-5.90) M/uL Hgb 19.5 H (13.0-17.0) g/dL Hct 57.6 H (38.0-50.0) % MCV 88.3 (80.0-98.0) fL MCH 29.9 (27.0-32.0) pg MCHC 33.9 (31.0-37.0) g/dL RDW Std Deviation 47.4 (28.0-62.0) fl RDW Coeff of Narda 15 (11.0-15.0) % Plt Count 206 (150-400) K/uL MPV 9.80 (7.40-12.00) fL Neut % (Auto) 69.3 (48.0-80.0) % Lymph % (Auto) 16.4 (16.0-40.0) % [place] % (Auto) 10.8 (0.0-15.0) % Eos % (Auto) 3.0 (0.0-7.0) % Baso % (Auto) 0.5 (0.0-1.5) % Neut # (Auto) 8.2 H (1.4-5.7) K/uL Lymph # (Auto) 1.9 (0.6-2.4) K/uL [place] # (Auto) 1.3 H (0.0-0.8) K/uL Eos # (Auto) 0.4 (0.0-0.7) K/uL Baso # (Auto) 0.1 (0.0-0.1) K/uL Nucleated RBC % 0.0 /100WBC Nucleated RBCs # 0 K/uL ESR 1 (0-19) mm/hr Lactate 1.5 (0.20-2.00) mmol/L Sodium 135 L (136-148) mmol/L Potassium 5.3 H (3.5-5.1) mmol/L Chloride 103 (98-107) mmol/L Carbon Dioxide 22.2 (21.0-32.0) mmol/L BUN 42 H (7.0-18.0) mg/dL Creatinine 2.1 H (0.8-1.3) mg/dL Est Cr Clr Drug Dosing TNP Estimated GFR (MDRD) 32.5 ml/min Glucose 127 H (74-106) mg/dL Calcium 9.8 (8.5-10.1) mg/dL Total Bilirubin 0.8 (0.2-1.0) mg/dL AST 25 (15-37) IU/L ALT 33 (14-63) IU/L Alkaline Phosphatase 50 (46-116) U/L C-Reactive Protein 6.80 H (0.00-0.90) mg/dL Total Protein 8.0 (6.4-8.2) g/dL Albumin 3.7 (3.4-5.0) g/dL Globulin 4.3 H (2.0-3.5) g/dL Albumin/Globulin Ratio 0.9 L (1.3-2.8) Meds: Medications Discontinued Medications Generic Name Dose Route Start Last Admin Trade Name Freq PRN Reason Stop Dose Admin Diphtheria/Tetanus/Acell Pertussis 0.5 ml 03/23/18 08:39 03/23/18 09:20 Adacel IM 03/23/18 08:40 0.5 ml .ONCE ONE Administration Sodium Chloride 1,000 mls @ 999 mls/hr 03/23/18 08:18 03/23/18 08:35 Normal Saline IV 03/23/18 09:18 999 mls/hr STAT ONE Administration Vancomycin HCl 1 gm/ Sodium 250 mls @ 250 mls/hr 03/23/18 09:12 03/23/18 09: 19 Chloride IV 03/23/18 10:11 250 mls/hr ONETIME ONE Administration Morphine Sulfate 2 mg 03/23/18 08:21 03/23/18 08:35 Morphine IVPUSH 03/23/18 08:22 2 mg ONETIME ONE Administration Departure - Departure Time of Disposition: 10:36 Disposition: Home, Self-Care 01 Condition: Good Clinical Impression: Right foot pain Cellulitis Qualifiers: Site of cellulitis: extremity Site of cellulitis of extremity: lower extremity Laterality: right Qualified Code(s): L03.115 - Cellulitis of right lower limb - Discharge Information Referrals: Richard Garcia DO [Primary Care Provider] - Additional Instructions: My general discharge The following information is given to patients seen in the emergency department who are being discharged to home. This information is to outline your options for follow-up care. We provide all patients seen in our emergency department with a follow-up referral. The need for follow-up, as well as the timing and circumstances, are variable depending upon the specifics of your emergency department visit. If you don't have a primary care physician on staff, we will provide you with a referral. We always advise you to contact your personal physician following an emergency department visit to inform them of the circumstance of the visit and for follow-up with them and/or the need for any referrals to a consulting specialist. The emergency department will also refer you to a specialist when appropriate. This referral assures that you have the opportunity for follow-up care with a specialist. All of these measure are taken in an effort to provide you with optimal care, which includes your follow-up. Under all circumstances we always encourage you to contact your private physician who remains a resource for coordinating your care. When calling for follow-up care, please make the office aware that this follow-up is from your recent emergency room visit. If for any reason you are refused follow-up, please contact the [facility] Emergency Department at and asked to speak to the emergency department charge nurse. [facility] [address] [place] [id number] Follow-up with Dr. Garcia as we discussed. Take medication as prescribed. Return emergency department if any new or worsening symptoms as we discussed. - My Orders Last 24 Hours: My Active Orders 03/23/18 08:39 Vaccines to be Administered [RC] PER UNIT ROUTINE 03/23/18 09:00 Blood Culture x2 Reflex Set [OM.PC] Stat 03/23/18 09:07 CULTURE BLOOD [BC] Stat 03/23/18 09:20 CULTURE BLOOD [BC] Stat - Assessment/Plan Last 24 Hours: My Active Orders 03/23/18 08:39 Vaccines to be Administered [RC] PER UNIT ROUTINE 03/23/18 09:00 Blood Culture x2 Reflex Set [OM.PC] Stat 03/23/18 09:07 CULTURE BLOOD [BC] Stat 03/23/18 09:20 CULTURE BLOOD [BC] Stat
[2018-03-23] MEDS ORDERED: Sodium Chloride 0.9% 1,000 ML IV ONE (08:18)
[2018-03-23] MEDS ORDERED: Morphine 2 MG/ML Syringe IVPUSH ONE ×2 (08:21→10:40)
[2018-03-23] MEDS ORDERED: Diphtheria,Pertussis(Acell),Tetanus Vaccine 0.5 ML Syringe IM ONE (08:39)
[2018-03-23 08:54] LABS: CHLORIDE,CL 103 mmol/L (98-107); SODIUM,NA 135 mmol/L (136-148)
--- NOTE | 2018-03-23 08:55 | CR ---
EXAMINATION: Right foot HISTORY: Pain COMPARISON: None TECHNIQUE: 3 views FINDINGS: There is no acute osseous abnormality, dislocation, or fracture. Bone mineralization and hedy int spaces are preserved. Vascular calcifications are noted. Small plantar calcaneal spur. Mild soft tissue swelling over the distal forefoot. IMPRESSION: No acute osseous abnormality identified.
[2018-03-23 11:12] VITALS: BP 160/88
== END 2018-03-23 11:02 | disposition home or self-care (01) ==
LOC: MW.ED 07:55
DX: L03.115 Cellulitis of right lower limb (principal); I10 Essential (primary) hypertension; E11.9 Type 2 diabetes mellitus without complications; Z88.5 Allergy status to narcotic agent; Z23 Encounter for immunization; Z79.82 Long term (current) use of aspirin; Z79.4 Long term (current) use of insulin; Z79.899 Other long term (current) drug therapy; Z95.5 Presence of coronary angioplasty implant and graft
CPT/HCPCS: 36415; 73630; 80053; 83605; 85025; 85652; 86140; 87040; 90471; 90715; 96361; 96365; 96375; 96376; 99283; J2270; J3370; J7040; J7050

== ENCOUNTER 2018-03-26 14:30 | Inpatient (IN) | payer BC ==
[2018-03-26] MEDS ORDERED: Acetaminophen 325 MG Tab PO PRN (16:18)
[2018-03-26] MEDS ORDERED: Ondansetron 4 MG Tab.DIS PO PRN (16:18)
[2018-03-26] MEDS ORDERED: Polyethylene Glycol 3350 Powder 17 GM Packet PO PRN (16:18)
[2018-03-26] MEDS: Acetaminophen/oxyCODONE 325-5 MG Tab PO PRN ×2 (16:44→22:31)
--- NOTE | 2018-03-26 16:51 | PCM.HP ---
<Patrick Khanesto - Last Filed: 03/26/18 16:44> H&P History of Present Illness - General Date of Service: 03/26/18 Admit Problem/Dx: Admission Diagnosis/Problem Admission Diagnosis/Problem Right foot pain - History of Present Illness Initial Comments - Free Text/Narative: Reza Schmitt is a 57 y/o male with history of diabetes mellitus, hypertension presenting today with right foot pain. Patient states that the right foot pain started on and has progressively been getting worse. Rates the pain 8/ 10. Worse with applied pressure. Started on plantar aspect of 1st metatarsal. No history of ulcers. No trauma to foot. He was prescribed antibiotics as outpatient since it was thought he had cellulitis on right foot. patient able to move toes but pain is worse with active motion. Of note, patient came back from a trip in [place] approximately 1 month ago. Denies any trauma over there. No sick contacts at home. Denies fevers, chest pain, dyspnea, abdominal pain, dysuria, new joint pain. No diarrhea. Right Feet Pain Score (Numeric/FACES): 8 - Related Data Allergies/Adverse Reactions: Allergies Allergy/AdvReac Type Severity Reaction Status Date / Time Codeine Allergy Nervousness Uncoded 03/10/17 07:57 Home Medications: Home Meds Aspirin 325 mg PO DAILY 05/05/15 [History] ClonazePAM [KlonoPIN] 0.5 mg PO DAILY 05/05/15 [History] Escitalopram [Lexapro] 20 mg PO DAILY 05/05/15 [History] Lisinopril 20 mg PO DAILY 05/05/15 [History] atorvaSTATin [Lipitor] 20 mg PO DAILY 05/05/15 [History] metFORMIN HCl [Glucophage] 1,000 mg PO BID 05/05/15 [History] Insulin Aspart [NovoLOG] 2 unit SUBCUT ASDIRECTED 03/10/17 [History] Empagliflozin [Jardiance] 10 mg 03/23/18 [History] Metoprolol Tartrate 25 mg DAILY 03/23/18 [History] Ranolazine [Ranexa] 500 mg BID 03/23/18 [History] Past Medical History Other HEENT History: Diminished hearing on RIGHT Cardiovascular History: Reports: High Cholesterol, Hypertension, Stents Respiratory History: Reports: None Gastrointestinal History: Reports: None Genitourinary History: Reports: None Other Musculoskeletal History: hx: Fracturing arm Other Neuro History: Right Carpal Tunnel Release Psychiatric History: Reports: Anxiety, Panic Attack Other Psychiatric History: past hx: panic attacks, since starte med regimen no problems Endocrine/Metabolic History: Reports: Diabetes, Type II Other Endocrine/Metabolic History: implanted insulin pump Hematologic History: Reports: None - Infectious Disease History Infectious Disease History: Reports: None - Past Surgical History Other Cardiovascular Surgeries/Procedures: 2 Stents placed about 20 yrs ago Other Musculoskeletal Surgeries/Procedures:: 3 Open Left knee surgeries, 2 Lt scopes, Right Knee Scope, Right open shoulder surgery, bilateral shoulder arthroscopies Social & Family History - Family History Family Medical History: Noncontributory Endocrine/Metabolic: Reports: Diabetes, type II - Tobacco Use Smoking Status *Q: Never Smoker Second Hand Smoke Exposure: No - Caffeine Use Caffeine Use: Reports: Coffee, Energy Drinks - Alcohol Use Days Per Week of Alcohol Use: 1 Number of Drinks Per Day: 1 Total Drinks Per Week: 1 - Recreational Drug Use Recreational Drug Use: No - Living Situation & Occupation Living situation: Reports: H&P Review of Systems - Review of Systems: Review Of Systems: ROS reveals no pertinent complaints other than HPI. Exam - Exam Exam: See Below - Vital Signs Vital Signs: Last Vital Signs Temp 36.0 C 03/26/18 14:59 Pulse 95 03/26/18 14:59 Resp 19 03/26/18 14:59 BP 128/70 03/26/18 14:59 Pulse Ox 95 03/26/18 14:59 Weight: 115.621 kg - Exam General: Alert, Oriented HEENT: Conjunctiva Clear, Posterior Pharynx Clear, Pupils Equal, Pupils Reactive Neck: Supple. No: Thyromegaly Lungs: Clear to Auscultation, Normal Respiratory Effort. No: Crackles, Wheezing Cardiovascular: Regular Rate, Regular Rhythm. No: Systolic Murmur, Diastolic Murmur GI/Abdominal Exam: Normal Bowel Sounds, Soft, Non-Tender, No Organomegaly, No Distention Extremities: Other (Right foot- there is an are of erythema on the medial aspect of the right foot extending from 1st metatarsal to ankle region. Some swelling on dorsal aspect of right foot. PT pulse intact. There is what seem to be an eroded blister on the plantar aspect of 1st metatarsal. Pain elicited with palpation. No open ulcers.) Skin: Warm, Dry Neurological: Cranial Nerves Intact Psychiatric: Alert, Normal Affect Problem List Initiated/Reviewed/Updated: Yes Orders Last 24hrs: Active Orders 24 hr Category Date Time Status Patient Status [ADT] Routine ADT 03/26/18 16:18 Ordered Oxygen Therapy [RC] PRN Care 03/26/18 16:18 Ordered Up ad Jo [RC] ASDIRECTED Care 03/26/18 16:18 Ordered VTE/DVT Education [RC] PER UNIT ROUTINE Care 03/26/18 16:18 Ordered Vital Signs [RC] Q8HR Care 03/26/18 16:18 Ordered [place] [employer] Diet [DIET] Diet 03/26/18 Breakfast Ordered Foot wo Cont Lt [MR] Routine Exams 03/26/18 16:34 Ordered CBC WITH AUTO DIFF [HEME] AM Lab 03/27/18 05:11 Ordered CBC WITH AUTO DIFF [HEME] Routine Lab 03/26/18 16:32 Ordered COMPREHENSIVE METABOLIC PN,CMP [CHEM] AM Lab 03/27/18 05:11 Ordered COMPREHENSIVE METABOLIC PN,CMP [CHEM] Routine Lab 03/26/18 16:32 Ordered CRP [C-REACTIVE PROTEIN] [CHEM] Routine Lab 03/26/18 16:33 Ordered ESR [SEDIMENTATION RATE AUTO] [HEME] Routine Lab 03/26/18 16:32 Ordered Acetaminophen [Tylenol] Med 03/26/18 16:18 Ordered 650 mg PO Q4H PRN Acetaminophen/oxyCODONE [Percocet 325-5 MG] Med 03/26/18 16:18 Ordered 2 tab PO Q4H PRN Ampicillin/Sulbactam Na [Unasyn] 3 gm Med 03/26/18 16:45 Ordered Sodium Chloride 0.9% [Normal Saline] 100 ml IV Q6H Aspirin Med 03/27/18 09:00 Ordered 325 mg PO DAILY ClonazePAM [KlonoPIN] Med 03/27/18 09:00 Ordered 0.5 mg PO DAILY Enoxaparin [Lovenox] Med 03/26/18 16:30 Ordered 40 mg SUBCUT Q24H Escitalopram Med 03/27/18 09:00 Ordered 20 mg PO DAILY Lisinopril Med 03/27/18 09:00 Ordered 20 mg PO DAILY Metoprolol Tartrate [Lopressor] Med 03/27/18 09:00 Ordered 25 mg PO DAILY Ondansetron [Zofran ODT] Med 03/26/18 16:18 Ordered 4 mg PO Q6H PRN Polyethylene Glycol 3350 [MiraLAX] Med 03/26/18 16:18 Ordered 17 gm PO DAILY PRN Ranolazine [Ranexa] Med 03/26/18 21:00 Ordered 500 mg PO BID Vancomycin [Vancocin] 1 gm Med 03/26/18 16:40 Ordered Sodium Chloride 0.9% [Normal Saline] 250 ml IV ONETIME atorvaSTATin [Lipitor] Med 03/27/18 09:00 Ordered 20 mg PO DAILY metFORMIN HCl [Glucophage] Med 03/26/18 21:00 Ordered 1,000 mg PO BID Resuscitation Status Routine Resus Stat 03/26/18 16:18 Ordered Medication Orders Acetaminophen (Tylenol) 650 mg PO Q4H PRN PRN Reason: Pain (Mild 1-3)/fever Aspirin (Aspirin) 325 mg PO DAILY [facility] Atorvastatin Calcium (Lipitor) 20 mg PO DAILY [facility] Clonazepam (Klonopin) 0.5 mg PO DAILY [facility] Enoxaparin Sodium (Lovenox) 40 mg SUBCUT Q24H [facility] Ampicillin Sodium/Sulbactam (Sodium 3 gm/ Sodium Chloride) 100 mls @ 200 mls/ hr IV Q6H [facility] Vancomycin HCl 1 gm/ Sodium (Chloride) 250 mls @ 250 mls/hr IV ONETIME ONE Stop: 03/26/18 17:39 Metoprolol Tartrate (Lopressor) 25 mg PO DAILY [facility] Non-Formulary Medication (Escitalopram) 20 mg PO DAILY [facility] Non-Formulary Medication (Lisinopril) 20 mg PO DAILY [facility] Non-Formulary Medication (Metformin Hcl [Glucophage]) 1,000 mg PO BID [facility] Ondansetron HCl (Zofran Odt) 4 mg PO Q6H PRN PRN Reason: nausea, able to take PO Oxycodone/Acetaminophen (Percocet 325-5 Mg) 2 tab PO Q4H PRN PRN Reason: Pain (moderate 4-6) Polyethylene Glycol (Miralax) 17 gm PO DAILY PRN PRN Reason: Constipation Ranolazine (Ranexa) 500 mg PO BID [facility] Assessment/Plan Comment:: 1. Right diabetic foot- concerning for osteomylitis due to patient's history of diabetes. Ordered CRP, ESR, CMP and CBC. In addition, ordered MRI right foot to assess for osteomylitis. Started Unasyn and vancomycin. Will discontinue vacomycin once patient is cleared for MRSA. Ordered acetaminophen/oxycodone for pain control. Will consult podiatry once MRI results are available. 2. Diabetes mellitus. Patient on personal insulin pump. Continue to monitor glycemic levels. Continue with metformin, lisinopril. 3. Coronary artery disease s/p stent placement- Continue with aspirin, metoprolol, atorvastatin and ranolazine. <Richard Garcia - Last Filed: 03/27/18 10:21> H&P History of Present Illness - General Admit Problem/Dx: Admission Diagnosis/Problem Admission Diagnosis/Problem Right foot pain Exam - Vital Signs Vital Signs: Last Vital Signs Temp 36.4 C 03/27/18 07:28 Pulse 92 03/27/18 08:35 Resp 18 03/27/18 07:28 BP 122/81 03/27/18 08:36 Pulse Ox 93 L 03/27/18 07:28 - Patient Data Lab Results Last 24 hrs: Laboratory Results - last 24 hr 03/26/18 03/26/18 03/27/18 Range/Units 16:48 16:48 05:00 WBC 10.40 10.27 (4.0-11.0) K/uL RBC 6.17 H 6.02 H (4.50-5.90) M/uL Hgb 18.8 H 17.8 H (13.0-17.0) g/dL Hct 54.0 H 53.3 H (38.0-50.0) % MCV 87.5 88.5 (80.0-98.0) fL MCH 30.5 29.6 (27.0-32.0) pg MCHC 34.8 33.4 (31.0-37.0) g/dL RDW Std Deviation 46.3 47.4 (28.0-62.0) fl RDW Coeff of Narda 15 15 (11.0-15.0) % Plt Count 242 235 (150-400) K/uL MPV 9.40 9.40 (7.40-12.00) fL Add Manual Diff YES YES Neutrophils % (Manual) 73 61 (48.0-80.0) % Band Neutrophils % 2 % Lymphocytes % (Manual) 23 30 (16.0-40.0) % Monocytes % (Manual) 2 5 (0.0-15.0) % Eosinophils % (Manual) 4 (0.0-7.0) % Nucleated RBC % 0.0 0.0 /100WBC Absolute Seg Neuts 7.6 H 6.3 H (1.4-5.7) Band Neutrophils # 0.2 Lymphocytes # (Manual) 2.4 3.1 H (0.6-2.4) Monocytes # (Manual) 0.2 0.5 (0.0-0.8) Eosinophils # (Manual) 0.4 (0.0-0.7) Nucleated RBCs # 0 0 K/uL ESR 1 (0-19) mm/hr Sodium 137 (136-148) mmol/L Potassium 4.5 (3.5-5.1) mmol/L Chloride 103 (98-107) mmol/L Carbon Dioxide 22.9 (21.0-32.0) mmol/L BUN 33 H (7.0-18.0) mg/dL Creatinine 2.1 H (0.8-1.3) mg/dL Est Cr Clr Drug Dosing 37.88 mL/min Estimated GFR (MDRD) 32.5 ml/min Glucose 94 (74-106) mg/dL Calcium 9.4 (8.5-10.1) mg/dL Total Bilirubin 0.4 (0.2-1.0) mg/dL AST 27 (15-37) IU/L ALT 32 (14-63) IU/L Alkaline Phosphatase 44 L (46-116) U/L C-Reactive Protein 1.30 H (0.00-0.90) mg/dL Total Protein 7.1 (6.4-8.2) g/dL Albumin 3.5 (3.4-5.0) g/dL Globulin 3.6 H (2.0-3.5) g/dL Albumin/Globulin Ratio 1.0 L (1.3-2.8) 03/27/18 Range/Units 05:00 WBC (4.0-11.0) K/uL RBC (4.50-5.90) M/uL Hgb (13.0-17.0) g/dL Hct (38.0-50.0) % MCV (80.0-98.0) fL MCH (27.0-32.0) pg MCHC (31.0-37.0) g/dL RDW Std Deviation (28.0-62.0) fl RDW Coeff of Narda (11.0-15.0) % Plt Count (150-400) K/uL MPV (7.40-12.00) fL Add Manual Diff Neutrophils % (Manual) (48.0-80.0) % Band Neutrophils % % Lymphocytes % (Manual) (16.0-40.0) % Monocytes % (Manual) (0.0-15.0) % Eosinophils % (Manual) (0.0-7.0) % Nucleated RBC % /100WBC Absolute Seg Neuts (1.4-5.7) Band Neutrophils # Lymphocytes # (Manual) (0.6-2.4) Monocytes # (Manual) (0.0-0.8) Eosinophils # (Manual) (0.0-0.7) Nucleated RBCs # K/uL ESR (0-19) mm/hr Sodium 136 (136-148) mmol/L Potassium 4.5 (3.5-5.1) mmol/L Chloride 102 (98-107) mmol/L Carbon Dioxide 27.6 (21.0-32.0) mmol/L BUN 29 H (7.0-18.0) mg/dL Creatinine 2.2 H (0.8-1.3) mg/dL Est Cr Clr Drug Dosing 35.71 mL/min Estimated GFR (MDRD) 30.7 ml/min Glucose 138 H (74-106) mg/dL Calcium 9.1 (8.5-10.1) mg/dL Total Bilirubin 0.3 (0.2-1.0) mg/dL AST 22 (15-37) IU/L ALT 28 (14-63) IU/L Alkaline Phosphatase 37 L (46-116) U/L C-Reactive Protein (0.00-0.90) mg/dL Total Protein 6.5 (6.4-8.2) g/dL Albumin 3.1 L (3.4-5.0) g/dL Globulin 3.4 (2.0-3.5) g/dL Albumin/Globulin Ratio 0.9 L (1.3-2.8) Result Diagrams: 03/27/18 05:00 03/27/18 05:00 Orders Last 24hrs: Active Orders 24 hr Category Date Time Status Patient Status [ADT] Routine ADT 03/26/18 16:18 Active Blood Glucose Check, Bedside [RC] QIDACANDBED Care 03/26/18 18:08 Active Oxygen Therapy [RC] PRN Care 03/26/18 16:18 Active Up ad Jo [RC] ASDIRECTED Care 03/26/18 16:18 Active VTE/DVT Education [RC] PER UNIT ROUTINE Care 03/26/18 16:18 Active Vital Signs [RC] Q8HR Care 03/26/18 16:18 Active Foot wo Cont Lt [MR] Routine Exams 03/26/18 16:34 Stop Req Acetaminophen [Tylenol] Med 03/26/18 16:18 Active 650 mg PO Q4H PRN Acetaminophen/oxyCODONE [Percocet 325-5 MG] Med 03/26/18 16:18 Active 2 tab PO Q4H PRN Ampicillin/Sulbactam Na [Unasyn] 3 gm Med 03/26/18 17:00 Active Sodium Chloride 0.9% [Normal Saline] 100 ml IV Q6H Aspirin Med 03/27/18 09:00 Active 325 mg PO DAILY ClonazePAM [KlonoPIN] Med 03/27/18 09:00 Active 0.5 mg PO DAILY Enoxaparin [Lovenox] Med 03/26/18 16:30 Active 40 mg SUBCUT Q24H Escitalopram [Lexapro] Med 03/27/18 09:00 Active 20 mg PO DAILY Lisinopril [Prinivil] Med 03/27/18 09:00 Active 20 mg PO DAILY Metoprolol Tartrate [Lopressor] Med 03/27/18 09:00 Active 25 mg PO DAILY Ondansetron [Zofran ODT] Med 03/26/18 16:18 Active 4 mg PO Q6H PRN Polyethylene Glycol 3350 [MiraLAX] Med 03/26/18 16:18 Active 17 gm PO DAILY PRN Ranolazine [Ranexa] Med 03/26/18 21:00 Active 500 mg PO BID atorvaSTATin [Lipitor] Med 03/27/18 09:00 Active 20 mg PO DAILY metFORMIN [Glucophage] Med 03/26/18 21:00 Active 1,000 mg PO BID Resuscitation Status Routine Resus Stat 03/26/18 16:18 Ordered Medication Orders Acetaminophen (Tylenol) 650 mg PO Q4H PRN PRN Reason: Pain (Mild 1-3)/fever Aspirin (Aspirin) 325 mg PO DAILY [facility] Last Admin: 03/27/18 08:36 Dose: 325 mg Atorvastatin Calcium (Lipitor) 20 mg PO DAILY [facility] Last Admin: 03/27/18 08:33 Dose: 20 mg Clonazepam (Klonopin) 0.5 mg PO DAILY [facility] Last Admin: 03/27/18 08:33 Dose: 0.5 mg Enoxaparin Sodium (Lovenox) 40 mg SUBCUT Q24H [facility] Last Admin: 03/26/18 17:37 Dose: 40 mg Escitalopram Oxalate (Lexapro) 20 mg PO DAILY [facility] Last Admin: 03/27/18 08:35 Dose: 20 mg Ampicillin Sodium/Sulbactam (Sodium 3 gm/ Sodium Chloride) 100 mls @ 200 mls/ hr IV Q6H [facility] Last Admin: 03/27/18 04:21 Dose: 200 mls/hr Infusion: 03/26/18 23:34 Dose: 200 mls/hr Admin: 03/26/18 23:04 Dose: 200 mls/hr Infusion: 03/26/18 17:45 Dose: 200 mls/hr Admin: 03/26/18 17:15 Dose: 200 mls/hr Lisinopril (Prinivil) 20 mg PO DAILY [facility] Last Admin: 03/27/18 08:36 Dose: 20 mg Metformin HCl (Glucophage) 1,000 mg PO BID [facility] Last Admin: 03/27/18 08:35 Dose: 1,000 mg Admin: 03/26/18 21:43 Dose: 1,000 mg Metoprolol Tartrate (Lopressor) 25 mg PO DAILY [facility] Last Admin: 03/27/18 08:35 Dose: 25 mg Ondansetron HCl (Zofran Odt) 4 mg PO Q6H PRN PRN Reason: nausea, able to take PO Oxycodone/Acetaminophen (Percocet 325-5 Mg) 2 tab PO Q4H PRN PRN Reason: Pain (moderate 4-6) Last Admin: 03/27/18 08:33 Dose: 2 tab Admin: 03/27/18 03:35 Dose: 2 tab Admin: 03/26/18 22:31 Dose: 2 tab Admin: 03/26/18 16:44 Dose: 2 tab Polyethylene Glycol (Miralax) 17 gm PO DAILY PRN PRN Reason: Constipation Ranolazine (Ranexa) 500 mg PO BID [facility] Last Admin: 03/27/18 08:33 Dose: 500 mg Admin: 03/26/18 21:43 Dose: 500 mg Assessment/Plan Comment:: I have seen and examined the patient independently of registered medical transcriptionist. The patient is known to me from previous office visits and I had arranged for direct admission. Patient is a diabetic who has had his diabetes well controlled previous A1c around 6%. He is on an insulin pump. Patient had what appeared to be beginning diabetic foot ulcer and the patient returned last month on a trip from [place]. He apparently failed outpatient antibiotics and had been previously on clindamycin. I agree with the plan and the findings put forth by the registered medical transcriptionist. Please see orders.
[2018-03-26] MEDS ORDERED: Ampicillin/Sulbactam Na 3 GM in Sodium Chloride 0.9% 100 ML IV SCH (17:00)
[2018-03-26] MEDS: Ampicillin/Sulbactam Na 3 GM in Sodium Chloride 0.9% 100 ML IV SCH ×2 (17:15→23:04)
[2018-03-26] MEDS: Enoxaparin 40 MG/0.4 ML Syringe SUBCUT SCH (17:37)
[2018-03-26] MEDS: metFORMIN 500 MG Tab PO SCH (21:43)
[2018-03-27] MEDS: Acetaminophen/oxyCODONE 325-5 MG Tab PO PRN ×4 (03:35→20:47)
[2018-03-27] MEDS: Ampicillin/Sulbactam Na 3 GM in Sodium Chloride 0.9% 100 ML IV SCH ×4 (04:21→22:38)
[2018-03-27] MEDS: atorvaSTATin 20 MG Tab PO SCH (08:33)
[2018-03-27] MEDS: ClonazePAM 0.5 MG Tab PO SCH (08:33)
[2018-03-27] MEDS: metFORMIN 500 MG Tab PO SCH ×2 (08:35→20:46)
[2018-03-27] MEDS: Metoprolol Tartrate 25 MG Tab PO SCH (08:35)
[2018-03-27] MEDS: Escitalopram 10 MG Tab PO SCH (08:35)
[2018-03-27] MEDS: Aspirin 325 MG Tab PO SCH (08:36)
[2018-03-27] MEDS: Lisinopril 10 MG Tab PO SCH (08:36)
--- NOTE | 2018-03-27 10:55 | MR ---
EXAM DATE: 03/26/18 PATIENT'S AGE: 57 Patient: GERSON BEARD Facility: [place], [place] Site . Site : [id number] Study: MRI Extremity Right [id number] 8:48:47 PM Ordering Physician: Radha Ramos Final Report: HISTORY: Assess for osteomyelitis. Right foot pain worse with movement. TECHNIQUE: MRI right foot without contrast. COMPARISON: None. FINDINGS: Bones: No osteomyelitis. No fracture. No marrow replacing process. Small benign cyst in the calcaneus. Prominent spurring of the dorsal navicular bone at the talonavicular joint capsule attachment. Joint spaces: Joint spaces are maintained. No joint effusion. No erosions. Ligaments: Lisfranc ligament is intact. Musculotendinous structures: Flexor and extensor tendons are intact. Physiologic quantity of fluid in the tendon sheaths. 2.5 x 1 x 1 cm well- circumscribed T1 intermediate to mildly hyperintense, predominantly STIR and PD hyperintense mass in the adductor hallucis muscle (sagittal series 501 image 22 , short axis series 701 image 48). Punctate foci of PD/T2 hypointense signal within the lesion. Mild intramuscular edema in portions of the foot musculature. Plantar aponeurosis: Hypointense nodular thickening of the medial plantar aponeurosis in the forefoot at the level of the distal 1st metatarsal. Central band is thickened in the hindfoot near the calcaneal attachment with mild intermediate intrasubstance signal. Other: Mild subcutaneous edema in the dorsum of the foot. No fluid collection. IMPRESSION: 1. Indeterminate 2.5 x 1 x 1 cm soft tissue mass in the adductor hallucis muscle. Tissue diagnosis should be considered. At minimum, recommend followup contrast-enhanced MRI in 2-3 months. 2. No osteomyelitis. 3. Mild nodular thickening of the plantar aponeurosis in the forefoot may be plantar fascia fibromatosis or scarring. Dictated by Maicol Dawn MD @ Mar 26 2018 9:20PM (Electronic Signature) Report Signed by Proxy. ANGIE
--- NOTE | 2018-03-27 14:10 | PCM.PN ---
<Iron Khan - Last Filed: 03/27/18 14:05> - General Info Date of Service: 03/27/18 Subjective Update: Reza Schmitt is a 58 y/o male with history of DM2 on insulin pump who was admitted for right foot cellulitis with concern for osteomyelitis. Recent MRI does not show osteomylitis but it did show a 2 cm area of soft tissue which could represent an abscess. Today, he states that his pain is much improved since he is not putting weight on the foot and with current pain medications. Denies fevers, chest pain, dyspnea, abdominal pain, dyrsuria, diarrhea or other rashes on body. - Patient Data Vitals - Most Recent: Last Vital Signs Temp 35.7 C 03/27/18 11:46 Pulse 78 03/27/18 11:46 Resp 18 03/27/18 11:46 BP 136/67 03/27/18 11:46 Pulse Ox 93 L 03/27/18 11:46 Weight - Most Recent: 115.621 kg I&O - Last 24 Hours: Intake & Output 03/26/18 03/27/18 03/27/18 22:59 06:59 14:59 Intake Total 100 500 Output Total 0 650 Balance 100 -150 Lab Results Last 24 Hours: Laboratory Results - last 24 hr 03/26/18 03/26/18 03/27/18 Range/Units 16:48 16:48 05:00 WBC 10.40 10.27 (4.0-11.0) K/uL RBC 6.17 H 6.02 H (4.50-5.90) M/uL Hgb 18.8 H 17.8 H (13.0-17.0) g/dL Hct 54.0 H 53.3 H (38.0-50.0) % MCV 87.5 88.5 (80.0-98.0) fL MCH 30.5 29.6 (27.0-32.0) pg MCHC 34.8 33.4 (31.0-37.0) g/dL RDW Std Deviation 46.3 47.4 (28.0-62.0) fl RDW Coeff of Narda 15 15 (11.0-15.0) % Plt Count 242 235 (150-400) K/uL MPV 9.40 9.40 (7.40-12.00) fL Add Manual Diff YES YES Neutrophils % (Manual) 73 61 (48.0-80.0) % Band Neutrophils % 2 % Lymphocytes % (Manual) 23 30 (16.0-40.0) % Monocytes % (Manual) 2 5 (0.0-15.0) % Eosinophils % (Manual) 4 (0.0-7.0) % Nucleated RBC % 0.0 0.0 /100WBC Absolute Seg Neuts 7.6 H 6.3 H (1.4-5.7) Band Neutrophils # 0.2 Lymphocytes # (Manual) 2.4 3.1 H (0.6-2.4) Monocytes # (Manual) 0.2 0.5 (0.0-0.8) Eosinophils # (Manual) 0.4 (0.0-0.7) Nucleated RBCs # 0 0 K/uL ESR 1 (0-19) mm/hr Sodium 137 (136-148) mmol/L Potassium 4.5 (3.5-5.1) mmol/L Chloride 103 (98-107) mmol/L Carbon Dioxide 22.9 (21.0-32.0) mmol/L BUN 33 H (7.0-18.0) mg/dL Creatinine 2.1 H (0.8-1.3) mg/dL Est Cr Clr Drug Dosing 37.88 mL/min Estimated GFR (MDRD) 32.5 ml/min Glucose 94 (74-106) mg/dL Calcium 9.4 (8.5-10.1) mg/dL Total Bilirubin 0.4 (0.2-1.0) mg/dL AST 27 (15-37) IU/L ALT 32 (14-63) IU/L Alkaline Phosphatase 44 L (46-116) U/L C-Reactive Protein 1.30 H (0.00-0.90) mg/dL Total Protein 7.1 (6.4-8.2) g/dL Albumin 3.5 (3.4-5.0) g/dL Globulin 3.6 H (2.0-3.5) g/dL Albumin/Globulin Ratio 1.0 L (1.3-2.8) 03/27/18 Range/Units 05:00 WBC (4.0-11.0) K/uL RBC (4.50-5.90) M/uL Hgb (13.0-17.0) g/dL Hct (38.0-50.0) % MCV (80.0-98.0) fL MCH (27.0-32.0) pg MCHC (31.0-37.0) g/dL RDW Std Deviation (28.0-62.0) fl RDW Coeff of Narda (11.0-15.0) % Plt Count (150-400) K/uL MPV (7.40-12.00) fL Add Manual Diff Neutrophils % (Manual) (48.0-80.0) % Band Neutrophils % % Lymphocytes % (Manual) (16.0-40.0) % Monocytes % (Manual) (0.0-15.0) % Eosinophils % (Manual) (0.0-7.0) % Nucleated RBC % /100WBC Absolute Seg Neuts (1.4-5.7) Band Neutrophils # Lymphocytes # (Manual) (0.6-2.4) Monocytes # (Manual) (0.0-0.8) Eosinophils # (Manual) (0.0-0.7) Nucleated RBCs # K/uL ESR (0-19) mm/hr Sodium 136 (136-148) mmol/L Potassium 4.5 (3.5-5.1) mmol/L Chloride 102 (98-107) mmol/L Carbon Dioxide 27.6 (21.0-32.0) mmol/L BUN 29 H (7.0-18.0) mg/dL Creatinine 2.2 H (0.8-1.3) mg/dL Est Cr Clr Drug Dosing 35.71 mL/min Estimated GFR (MDRD) 30.7 ml/min Glucose 138 H (74-106) mg/dL Calcium 9.1 (8.5-10.1) mg/dL Total Bilirubin 0.3 (0.2-1.0) mg/dL AST 22 (15-37) IU/L ALT 28 (14-63) IU/L Alkaline Phosphatase 37 L (46-116) U/L C-Reactive Protein (0.00-0.90) mg/dL Total Protein 6.5 (6.4-8.2) g/dL Albumin 3.1 L (3.4-5.0) g/dL Globulin 3.4 (2.0-3.5) g/dL Albumin/Globulin Ratio 0.9 L (1.3-2.8) Med Orders - Current: Current Medications Acetaminophen (Tylenol) 650 mg PO Q4H PRN PRN Reason: Pain (Mild 1-3)/fever Aspirin (Aspirin) 325 mg PO DAILY [facility] Last Admin: 03/27/18 08:36 Dose: 325 mg Atorvastatin Calcium (Lipitor) 20 mg PO DAILY [facility] Last Admin: 03/27/18 08:33 Dose: 20 mg Clonazepam (Klonopin) 0.5 mg PO DAILY [facility] Last Admin: 03/27/18 08:33 Dose: 0.5 mg Enoxaparin Sodium (Lovenox) 40 mg SUBCUT Q24H [facility] Last Admin: 03/26/18 17:37 Dose: 40 mg Escitalopram Oxalate (Lexapro) 20 mg PO DAILY [facility] Last Admin: 03/27/18 08:35 Dose: 20 mg Ampicillin Sodium/Sulbactam (Sodium 3 gm/ Sodium Chloride) 100 mls @ 200 mls/ hr IV Q6H [facility] Last Admin: 03/27/18 10:45 Dose: 200 mls/hr Lisinopril (Prinivil) 20 mg PO DAILY [facility] Last Admin: 03/27/18 08:36 Dose: 20 mg Metformin HCl (Glucophage) 1,000 mg PO BID [facility] Last Admin: 03/27/18 08:35 Dose: 1,000 mg Metoprolol Tartrate (Lopressor) 25 mg PO DAILY [facility] Last Admin: 03/27/18 08:35 Dose: 25 mg Ondansetron HCl (Zofran Odt) 4 mg PO Q6H PRN PRN Reason: nausea, able to take PO Oxycodone/Acetaminophen (Percocet 325-5 Mg) 2 tab PO Q4H PRN PRN Reason: Pain (moderate 4-6) Last Admin: 03/27/18 14:00 Dose: 2 tab Polyethylene Glycol (Miralax) 17 gm PO DAILY PRN PRN Reason: Constipation Ranolazine (Ranexa) 500 mg PO BID [facility] Last Admin: 03/27/18 08:33 Dose: 500 mg Discontinued Medications Ampicillin Sodium/Sulbactam (Sodium 3 gm/ Sodium Chloride) 100 mls @ 200 mls/ hr IV Q6H [facility] Vancomycin HCl 1 gm/ Sodium (Chloride) 250 mls @ 250 mls/hr IV ONETIME ONE Stop: 03/26/18 17:59 Vancomycin HCl 1 gm/ Sodium (Chloride) 250 mls @ 250 mls/hr IV ONETIME ONE Stop: 03/26/18 18:29 Last Admin: 03/26/18 18:46 Dose: 250 mls/hr - Exam General: Alert, Oriented, Cooperative, No Acute Distress HEENT: Pupils Equal, Pupils Reactive Lungs: Clear to Auscultation, Normal Respiratory Effort Cardiovascular: Regular Rate, Regular Rhythm GI/Abdominal Exam: Normal Bowel Sounds, Soft, Non-Tender Extremities: Other (Right foot shows marked area of cellulitis on right fooot which has not spread. No ulcer or active drainage. stove tender on plantar aspect of 1st metatarsal.) Skin: Warm, Dry - Problem List Review Problem List Initiated/Reviewed/Updated: Yes - My Orders Last 24 Hours: My Active Orders 03/26/18 16:18 Patient Status [ADT] Routine Oxygen Therapy [RC] PRN Up ad Jo [RC] ASDIRECTED VTE/DVT Education [RC] PER UNIT ROUTINE Vital Signs [RC] Q8HR Acetaminophen [Tylenol] 650 mg PO Q4H PRN Acetaminophen/oxyCODONE [Percocet 325-5 MG] 2 tab PO Q4H PRN Ondansetron [Zofran ODT] 4 mg PO Q6H PRN Polyethylene Glycol 3350 [MiraLAX] 17 gm PO DAILY PRN Resuscitation Status Routine 03/26/18 16:30 Enoxaparin [Lovenox] 40 mg SUBCUT Q24H 03/26/18 17:00 Ampicillin/Sulbactam Na [Unasyn] 3 gm Sodium Chloride 0.9% [Normal Saline] 100 ml IV Q6H 03/26/18 18:08 Blood Glucose Check, Bedside [RC] QIDACANDBED 03/27/18 10:34 Consult to Physician [CONS] Routine 03/27/18 10:35 Notify Provider Consults [RC] ASDIRECTED - Plan Plan:: 1. Right foot cellulitis- No osteomylitis on recent MRI. However concern for underlying abscess. Spoke with Dr. Ambriz who will evaluate the patient later today. Continue with Unasyn for now. Keep foot elevated. 2. Diabetes mellitus type 2, controlled. Continue with patient insulin pump. 3. Coronary artery disease s/p stent placement- continue with current medications which include metoprolol, aspirin, atorvastatin and ranolazine. Dispo: pending podiatry evaluation. maybe tomorrow. I have seen and examined the patient independently of biomedical equipment specialist. The patient is known to me from previous office visits and I had arranged for direct admission. Patient is a diabetic who has had his diabetes well controlled previous A1c around 6%. He is on an insulin pump. Patient had what appeared to be beginning diabetic foot ulcer and the patient returned last month on a trip from [place]. He apparently failed outpatient antibiotics and had been previously on clindamycin. I agree with the plan and the findings put forth by the biomedical equipment specialist. Please see orders. <Richard Garcia - Last Filed: 03/27/18 16:57> - General Info Admission Dx/Problem (Free Text): I evaluated the patient independently of biomedical equipment specialist. The patient had an MRI that had an indeterminate 2 x 5 x 1 x 1 cm soft tissue mass in the adductor hallucis muscle. Podiatry consult. There was no evidence of osteomyelitis. The patient has continued to improve. For now will continue on IV antibiotics until danger infection is resolved. Overall, the patient has made improvement. I agree with the findings and assessment and plan of care with the biomedical equipment specialist. I have discussed the case with him. Patient should be appropriate for discharge 1 day or sooner if necessary. Please see orders. - Patient Data Vitals - Most Recent: Last Vital Signs Temp 36.2 C 03/27/18 16:00 Pulse 71 03/27/18 16:00 Resp 18 03/27/18 16:00 BP 131/83 03/27/18 16:00 Pulse Ox 95 03/27/18 16:00 I&O - Last 24 Hours: Intake & Output 03/27/18 03/27/18 03/27/18 06:59 14:59 22:59 Intake Total 500 450 Output Total 650 Balance -150 450 Lab Results Last 24 Hours: Laboratory Results - last 24 hr 03/26/18 03/26/18 03/27/18 Range/Units 16:48 16:48 05:00 WBC 10.40 10.27 (4.0-11.0) K/uL RBC 6.17 H 6.02 H (4.50-5.90) M/uL Hgb 18.8 H 17.8 H (13.0-17.0) g/dL Hct 54.0 H 53.3 H (38.0-50.0) % MCV 87.5 88.5 (80.0-98.0) fL MCH 30.5 29.6 (27.0-32.0) pg MCHC 34.8 33.4 (31.0-37.0) g/dL RDW Std Deviation 46.3 47.4 (28.0-62.0) fl RDW Coeff of Narda 15 15 (11.0-15.0) % Plt Count 242 235 (150-400) K/uL MPV 9.40 9.40 (7.40-12.00) fL Add Manual Diff YES YES Neutrophils % (Manual) 73 61 (48.0-80.0) % Band Neutrophils % 2 % Lymphocytes % (Manual) 23 30 (16.0-40.0) % Monocytes % (Manual) 2 5 (0.0-15.0) % Eosinophils % (Manual) 4 (0.0-7.0) % Nucleated RBC % 0.0 0.0 /100WBC Absolute Seg Neuts 7.6 H 6.3 H (1.4-5.7) Band Neutrophils # 0.2 Lymphocytes # (Manual) 2.4 3.1 H (0.6-2.4) Monocytes # (Manual) 0.2 0.5 (0.0-0.8) Eosinophils # (Manual) 0.4 (0.0-0.7) Nucleated RBCs # 0 0 K/uL ESR 1 (0-19) mm/hr Sodium 137 (136-148) mmol/L Potassium 4.5 (3.5-5.1) mmol/L Chloride 103 (98-107) mmol/L Carbon Dioxide 22.9 (21.0-32.0) mmol/L BUN 33 H (7.0-18.0) mg/dL Creatinine 2.1 H (0.8-1.3) mg/dL Est Cr Clr Drug Dosing 37.88 mL/min Estimated GFR (MDRD) 32.5 ml/min Glucose 94 (74-106) mg/dL Calcium 9.4 (8.5-10.1) mg/dL Total Bilirubin 0.4 (0.2-1.0) mg/dL AST 27 (15-37) IU/L ALT 32 (14-63) IU/L Alkaline Phosphatase 44 L (46-116) U/L C-Reactive Protein 1.30 H (0.00-0.90) mg/dL Total Protein 7.1 (6.4-8.2) g/dL Albumin 3.5 (3.4-5.0) g/dL Globulin 3.6 H (2.0-3.5) g/dL Albumin/Globulin Ratio 1.0 L (1.3-2.8) 03/27/18 Range/Units 05:00 WBC (4.0-11.0) K/uL RBC (4.50-5.90) M/uL Hgb (13.0-17.0) g/dL Hct (38.0-50.0) % MCV (80.0-98.0) fL MCH (27.0-32.0) pg MCHC (31.0-37.0) g/dL RDW Std Deviation (28.0-62.0) fl RDW Coeff of Narda (11.0-15.0) % Plt Count (150-400) K/uL MPV (7.40-12.00) fL Add Manual Diff Neutrophils % (Manual) (48.0-80.0) % Band Neutrophils % % Lymphocytes % (Manual) (16.0-40.0) % Monocytes % (Manual) (0.0-15.0) % Eosinophils % (Manual) (0.0-7.0) % Nucleated RBC % /100WBC Absolute Seg Neuts (1.4-5.7) Band Neutrophils # Lymphocytes # (Manual) (0.6-2.4) Monocytes # (Manual) (0.0-0.8) Eosinophils # (Manual) (0.0-0.7) Nucleated RBCs # K/uL ESR (0-19) mm/hr Sodium 136 (136-148) mmol/L Potassium 4.5 (3.5-5.1) mmol/L Chloride 102 (98-107) mmol/L Carbon Dioxide 27.6 (21.0-32.0) mmol/L BUN 29 H (7.0-18.0) mg/dL Creatinine 2.2 H (0.8-1.3) mg/dL Est Cr Clr Drug Dosing 35.71 mL/min Estimated GFR (MDRD) 30.7 ml/min Glucose 138 H (74-106) mg/dL Calcium 9.1 (8.5-10.1) mg/dL Total Bilirubin 0.3 (0.2-1.0) mg/dL AST 22 (15-37) IU/L ALT 28 (14-63) IU/L Alkaline Phosphatase 37 L (46-116) U/L C-Reactive Protein (0.00-0.90) mg/dL Total Protein 6.5 (6.4-8.2) g/dL Albumin 3.1 L (3.4-5.0) g/dL Globulin 3.4 (2.0-3.5) g/dL Albumin/Globulin Ratio 0.9 L (1.3-2.8) Med Orders - Current: Current Medications Acetaminophen (Tylenol) 650 mg PO Q4H PRN PRN Reason: Pain (Mild 1-3)/fever Aspirin (Aspirin) 325 mg PO DAILY [facility] Last Admin: 03/27/18 08:36 Dose: 325 mg Atorvastatin Calcium (Lipitor) 20 mg PO DAILY [facility] Last Admin: 03/27/18 08:33 Dose: 20 mg Clonazepam (Klonopin) 0.5 mg PO DAILY [facility] Last Admin: 03/27/18 08:33 Dose: 0.5 mg Enoxaparin Sodium (Lovenox) 40 mg SUBCUT Q24H [facility] Last Admin: 03/27/18 16:37 Dose: 40 mg Escitalopram Oxalate (Lexapro) 20 mg PO DAILY [facility] Last Admin: 03/27/18 08:35 Dose: 20 mg Ampicillin Sodium/Sulbactam (Sodium 3 gm/ Sodium Chloride) 100 mls @ 200 mls/ hr IV Q6H [facility] Last Admin: 03/27/18 10:45 Dose: 200 mls/hr Lisinopril (Prinivil) 20 mg PO DAILY [facility] Last Admin: 03/27/18 08:36 Dose: 20 mg Metformin HCl (Glucophage) 1,000 mg PO BID [facility] Last Admin: 03/27/18 08:35 Dose: 1,000 mg Metoprolol Tartrate (Lopressor) 25 mg PO DAILY [facility] Last Admin: 03/27/18 08:35 Dose: 25 mg Ondansetron HCl (Zofran Odt) 4 mg PO Q6H PRN PRN Reason: nausea, able to take PO Oxycodone/Acetaminophen (Percocet 325-5 Mg) 2 tab PO Q4H PRN PRN Reason: Pain (moderate 4-6) Last Admin: 03/27/18 14:00 Dose: 2 tab Polyethylene Glycol (Miralax) 17 gm PO DAILY PRN PRN Reason: Constipation Ranolazine (Ranexa) 500 mg PO BID [facility] Last Admin: 03/27/18 08:33 Dose: 500 mg Discontinued Medications Ampicillin Sodium/Sulbactam (Sodium 3 gm/ Sodium Chloride) 100 mls @ 200 mls/ hr IV Q6H [facility] Vancomycin HCl 1 gm/ Sodium (Chloride) 250 mls @ 250 mls/hr IV ONETIME ONE Stop: 03/26/18 17:59 Vancomycin HCl 1 gm/ Sodium (Chloride) 250 mls @ 250 mls/hr IV ONETIME ONE Stop: 03/26/18 18:29 Last Admin: 03/26/18 18:46 Dose: 250 mls/hr - My Orders Last 24 Hours: My Active Orders 03/26/18 21:00 Ranolazine [Ranexa] 500 mg PO BID metFORMIN [Glucophage] 1,000 mg PO BID 03/27/18 09:00 Aspirin 325 mg PO DAILY ClonazePAM [KlonoPIN] 0.5 mg PO DAILY Escitalopram [Lexapro] 20 mg PO DAILY Lisinopril [Prinivil] 20 mg PO DAILY Metoprolol Tartrate [Lopressor] 25 mg PO DAILY atorvaSTATin [Lipitor] 20 mg PO DAILY
[2018-03-27] MEDS: Enoxaparin 40 MG/0.4 ML Syringe SUBCUT SCH (16:37)
[2018-03-27] MEDS ORDERED: Lidocaine 1% 50 ML MDV INJECT ONE (18:02)
[2018-03-27] MEDS ORDERED: Lidocaine 2% 5 ML SDV ONE (18:11)
--- NOTE | 2018-03-27 18:42 | PCM.CONS ---
H&P History of Present Illness - General Date of Service: 03/27/18 Admit Problem/Dx: Patient as right foot abscess and cellulitis. The patient had an MRI that had an indeterminate 2 x 5 x 1 x 1 cm soft tissue mass in the adductor hallucis muscle. Podiatry consult. There was no evidence of osteomyelitis. The patient has continued to improve. Source of Information: Patient History Limitations: Reports: No Limitations - History of Present Illness Onset of Symptoms: Reports: Gradual, Unknown/Unsure Duration of Symptoms: Reports: Chronic Location: Reports: Lower Extremity, Right Quality: Reports: Throbbing Severity: Moderate Improves with: Reports: Rest, Other (antibiotic therapy) Worsens with: Reports: None Context: Reports: Activity/Exercise (patient was recently in [facility], [facility] [place]) Associated Symptoms: Reports: No Other Symptoms Right Feet Pain Score (Numeric/FACES): 6 - Related Data Allergies/Adverse Reactions: Allergies Allergy/AdvReac Type Severity Reaction Status Date / Time Codeine Allergy Nervousness Uncoded 03/10/17 07:57 Home Medications: Home Meds Aspirin 325 mg PO DAILY 05/05/15 [History] ClonazePAM [KlonoPIN] 0.5 mg PO DAILY 05/05/15 [History] Escitalopram [Lexapro] 20 mg PO DAILY 05/05/15 [History] Lisinopril 20 mg PO DAILY 05/05/15 [History] atorvaSTATin [Lipitor] 20 mg PO DAILY 05/05/15 [History] metFORMIN HCl [Glucophage] 1,000 mg PO BID 05/05/15 [History] Insulin Aspart [NovoLOG] 2 unit SUBCUT ASDIRECTED 03/10/17 [History] Empagliflozin [Jardiance] 10 mg 03/23/18 [History] Metoprolol Tartrate 25 mg DAILY 03/23/18 [History] Ranolazine [Ranexa] 500 mg BID 03/23/18 [History] Past Medical History Other HEENT History: Diminished hearing on RIGHT Cardiovascular History: Reports: High Cholesterol, Hypertension, Stents Respiratory History: Reports: None Gastrointestinal History: Reports: None Genitourinary History: Reports: None Other Musculoskeletal History: hx: Fracturing arm Other Neuro History: Right Carpal Tunnel Release Psychiatric History: Reports: Anxiety, Panic Attack Other Psychiatric History: past hx: panic attacks, since starte med regimen no problems Endocrine/Metabolic History: Reports: Diabetes, Type II Other Endocrine/Metabolic History: implanted insulin pump Hematologic History: Reports: None - Infectious Disease History Infectious Disease History: Reports: None - Past Surgical History Other Cardiovascular Surgeries/Procedures: 2 Stents placed about 20 yrs ago Other Musculoskeletal Surgeries/Procedures:: 3 Open Left knee surgeries, 2 Lt scopes, Right Knee Scope, Right open shoulder surgery, bilateral shoulder arthroscopies Social & Family History - Family History Family Medical History: Noncontributory Endocrine/Metabolic: Reports: Diabetes, type II - Tobacco Use Smoking Status *Q: Never Smoker Second Hand Smoke Exposure: No - Caffeine Use Caffeine Use: Reports: Coffee, Energy Drinks - Alcohol Use Days Per Week of Alcohol Use: 1 Number of Drinks Per Day: 1 Total Drinks Per Week: 1 - Recreational Drug Use Recreational Drug Use: No - Living Situation & Occupation Living situation: Reports: H&P Review of Systems - Review of Systems: Review Of Systems: See Below General: Reports: No Symptoms HEENT: Reports: No Symptoms Pulmonary: Reports: No Symptoms Cardiovascular: Reports: No Symptoms Gastrointestinal: Reports: No Symptoms Genitourinary: Reports: No Symptoms Musculoskeletal: Reports: No Symptoms Skin: Reports: No Symptoms Psychiatric: Reports: No Symptoms Neurological: Reports: No Symptoms Hematologic/Lymphatic: Reports: No Symptoms Immunologic: Reports: No Symptoms Exam - Exam Exam: See Below - Vital Signs Vital Signs: Last Vital Signs Temp 36.2 C 03/27/18 16:00 Pulse 71 03/27/18 16:00 Resp 18 03/27/18 16:00 BP 131/83 03/27/18 16:00 Pulse Ox 95 03/27/18 16:00 Weight: 115.621 kg - Exam Extremities: Normal Range of Motion, Pedal Edema (minimal), Increased Warmth, Redness Peripheral Pulses: 1+: Posterior Tibial (L), Posterior Tibial (R), Dorsalis Pedis (L), Dorsalis Pedis (R) Skin: Warm, Other (see physical exam comments) Physical Exam Comments:: Patient has right foot cellulitis, within marked boundaries and appears to be slowly subsiding in a distal direction and clearly stems from infection in the sub first metatarsal head area where there is an abscess with minimal purulent drainage. After incision and drainage, the devitalized skin is removed and abscess appears limited to subcutaneous depth approximately 3.0 cm superior to inferior by 1.5 cm proximal to distal. No tunneling is noted. - Patient Data Lab Results Last 24 hrs: Laboratory Results - last 24 hr 03/27/18 03/27/18 Range/Units 05:00 05:00 WBC 10.27 (4.0-11.0) K/uL RBC 6.02 H (4.50-5.90) M/uL Hgb 17.8 H (13.0-17.0) g/dL Hct 53.3 H (38.0-50.0) % MCV 88.5 (80.0-98.0) fL MCH 29.6 (27.0-32.0) pg MCHC 33.4 (31.0-37.0) g/dL RDW Std Deviation 47.4 (28.0-62.0) fl RDW Coeff of Narda 15 (11.0-15.0) % Plt Count 235 (150-400) K/uL MPV 9.40 (7.40-12.00) fL Add Manual Diff YES Neutrophils % (Manual) 61 (48.0-80.0) % Lymphocytes % (Manual) 30 (16.0-40.0) % Monocytes % (Manual) 5 (0.0-15.0) % Eosinophils % (Manual) 4 (0.0-7.0) % Nucleated RBC % 0.0 /100WBC Absolute Seg Neuts 6.3 H (1.4-5.7) Lymphocytes # (Manual) 3.1 H (0.6-2.4) Monocytes # (Manual) 0.5 (0.0-0.8) Eosinophils # (Manual) 0.4 (0.0-0.7) Nucleated RBCs # 0 K/uL Sodium 136 (136-148) mmol/L Potassium 4.5 (3.5-5.1) mmol/L Chloride 102 (98-107) mmol/L Carbon Dioxide 27.6 (21.0-32.0) mmol/L BUN 29 H (7.0-18.0) mg/dL Creatinine 2.2 H (0.8-1.3) mg/dL Est Cr Clr Drug Dosing 35.71 mL/min Estimated GFR (MDRD) 30.7 ml/min Glucose 138 H (74-106) mg/dL Calcium 9.1 (8.5-10.1) mg/dL Total Bilirubin 0.3 (0.2-1.0) mg/dL AST 22 (15-37) IU/L ALT 28 (14-63) IU/L Alkaline Phosphatase 37 L (46-116) U/L Total Protein 6.5 (6.4-8.2) g/dL Albumin 3.1 L (3.4-5.0) g/dL Globulin 3.4 (2.0-3.5) g/dL Albumin/Globulin Ratio 0.9 L (1.3-2.8) Result Diagrams: 03/27/18 05:00 03/27/18 05:00 Consult PN Assessment/Plan Procedures: Procedures ARTHROSCOP ROTATOR CUFF REPR (05/06/15) ASSAY OF C-PEPTIDE (06/21/16) ASSAY OF FREE TESTOSTERONE (09/07/17) ASSAY OF FREE THYROXINE (09/07/17) ASSAY OF LACTIC ACID (03/23/18) ASSAY OF PROTEIN URINE (10/11/17) ASSAY OF TOTAL TESTOSTERONE (09/07/17) ASSAY OF TROPONIN QUANT (03/10/17) ASSAY OF URINE CREATININE (10/11/17) ASSAY THYROID STIM HORMONE (09/07/17) BLOOD CULTURE FOR BACTERIA (03/23/18) C-REACTIVE PROTEIN (03/23/18) CARDIOVASCULAR STRESS TEST (03/17/17) CHEST X-RAY 1 VIEW FRONTAL (03/10/17) COMPLETE CBC W/AUTO DIFF WBC (03/23/18) COMPREHEN METABOLIC PANEL (03/23/18) CREATININE CLEARANCE TEST (10/11/17) ELECTROCARDIOGRAM TRACING (03/10/17) EMERGENCY DEPT VISIT (03/23/18) EMERGENCY DEPT VISIT (03/10/17) GLYCOSYLATED HEMOGLOBIN TEST (09/07/17) HT MUSCLE IMAGE SPECT SING (03/17/17) HYDRATE IV INFUSION ADD-ON (03/23/18) IMMUNIZATION ADMIN (03/23/18) INCISION OF TENDON & MUSCLE (05/06/15) LIPID PANEL (09/07/17) MANUAL THERAPY 1/> REGIONS (07/17/15) METABOLIC PANEL TOTAL CA (10/06/17) PROTHROMBIN TIME (03/10/17) PT EVALUATION (07/17/15) RBC SED RATE AUTOMATED (03/23/18) ROUTINE VENIPUNCTURE (03/23/18) SHOULDER ARTHROSCOPY/SURGERY (05/06/15) TDAP VACCINE 7 YRS/> IM (03/23/18) THER/PROPH/DIAG IV INF INIT (03/23/18) THERAPEUTIC EXERCISES (07/17/15) TTE W/DOPPLER COMPLETE (04/04/17) TX/PRO/DX INJ NEW DRUG ADDON (03/23/18) TX/PRO/DX 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 (1) Abscess of right foot SNOMED Code(s): 014503060 Code(s): L02.611 - CUTANEOUS ABSCESS OF RIGHT FOOT Current Visit: Yes Problem List Initiated/Reviewed/Updated: Yes Plan: 1. Patient examined at bedside 2. Written consent obtained for incision and drainage of right foot abscess 3. Incision and drainage of right foot abscess performed 4. Swab culture taken 5. Aquacel Ag dressing reinforced with gauze applied. 6. Patient is OK to discharge from Podiatry standpoint with followup required in my office. Appointment to be scheduled for within 4 days of discharge - call [phone] 7. Daily dressing change required. Remove existing dressings, cleanse with saline spray, dab with sterile gauze, apply Aquacel Ag, followed by 4x4 gauze and secure with gauze roll and tape. Ernie bandage should secure all dressings on day of discharge. 8. Patient instructed to minimize weight bearing to right foot and to use heel to stabilize foot when weight bearing avoiding weight at site of ulcer.
--- NOTE | 2018-03-28 01:22 | OR ---
SURGEON: Jm Ambriz DPM DATE OF PROCEDURE: 03/27/2018 IDENTIFICATION: The patient is a 58-year-old male. PREOPERATIVE DIAGNOSIS: Abscess, right foot. POSTOPERATIVE DIAGNOSIS: Diabetic ulcer, right foot. OPERATIVE PROCEDURE: Incision and drainage of abscess, right foot under local anesthesia. PATHOLOGY: None. HEMOSTASIS: None. EBL: 2 ml ANESTHESIA: Local, consisting of 3 mL of 1% lidocaine plain injected about the abscess over the distal medial portion of the right foot. JUSTIFICATION FOR THE PROCEDURE: The patient, Mr. Schmitt, is a diabetic, who developed an infected right foot with cellulitis emanating from the first metatarsal head area of the right foot following a trip to [place], where he was hunting in [facility]. The patient has an abscess, which upon examination, is clearly in need of drainage with minimal amount of purulence emanating without applying pressure from the devitalized skin about the underlying ulcer. Therefore, the patient is informed of this and readily agrees and provides his written consent for incision and drainage of right foot abscess, which is signed by the patient and witnessed by the nurse and placed in the patient's chart. PROCEDURE IN DETAIL: The patient's right foot was prepped and draped in the usual aseptic manner at bedside for this bedside procedure under local anesthesia only. There was no hemostasis utilized. The abscess was incised with a #15 blade and the devitalized tissue was removed with combination of careful dissection with a blade and pickup. Saline-soaked gauze was used to wipe away any loose tissue. Swab culture was taken to assess the effectiveness of the IV antibiotics currently being administered to the patient. All devitalized necrotic tissue was removed, and the medial and plantar aspects of the abscess area were probed to see if there was any tunneling. No tunneling was noted. The depth was limited to the subcutaneous level. The area was flushed with normal sterile saline, dabbed dry with sterile gauze, and dressed with Aquacel Ag bandage reinforced with sterile gauze and secured with a Matheus roll and tape. The patient tolerated the procedure and anesthesia well with no complications noted. The patient is okay to discharge from Podiatry standpoint. Daily wound care orders have been placed and the patient will be instructed to follow up in my office within four days maximum of discharge and sooner if possible. PAUL MARTINEZ /[id number] MTDD
[2018-03-28] MEDS: Ampicillin/Sulbactam Na 3 GM in Sodium Chloride 0.9% 100 ML IV SCH ×2 (04:13→13:20)
[2018-03-28] MEDS: Aspirin 325 MG Tab PO SCH (08:56)
[2018-03-28] MEDS: metFORMIN 500 MG Tab PO SCH (08:57)
[2018-03-28] MEDS: Escitalopram 10 MG Tab PO SCH (08:57)
[2018-03-28] MEDS: atorvaSTATin 20 MG Tab PO SCH (08:57)
[2018-03-28] MEDS: ClonazePAM 0.5 MG Tab PO SCH (08:57)
[2018-03-28] MEDS: Metoprolol Tartrate 25 MG Tab PO SCH (08:59)
[2018-03-28] MEDS: Lisinopril 10 MG Tab PO SCH (08:59)
[2018-03-28] MEDS: Acetaminophen/oxyCODONE 325-5 MG Tab PO PRN ×2 (09:03→15:45)
[2018-03-28] MEDS ORDERED: Nitroglycerin 0.4 MG/HR Transdermal Patch TRDERM SCH (10:00)
[2018-03-28] MEDS ORDERED: Heparin Sod,Pork In 0.45% Nacl 25,000 UNIT/500 ML IV.SOLN IV SCH (10:00)
[2018-03-28 11:31] VITALS: BP 141/72
--- NOTE | 2018-03-28 11:36 | PCM.DCSUM1 ---
<Iron Khan - Last Filed: 03/28/18 11:23> Discharge Summary - Hospital Course Free Text/Narrative:: Admission date: 03/26/18 Discharge date: 03/28/18 Admission diagnosis: 1. Diabetic foot ulcer 2. Past medical history of diabetes mellitus type 2, coronary artery disease Discharge diagnosis: 1. Diabetic foot ulcer s/p Incision and drainage 2. Past medical history of coronary artery disease, diabetes mellitus type 2 Procedures: 1. Incision and drainage of right foot abscess Consults: 1. Podiatry, Dr. Ambriz Hospital course: Reza Schmitt is a 58 y/o male with history of diabetes mellitus type 2 on an insulin pump and coronary artery disease who presented to the ER complaining of worsening right foot pain. He was admitted for suspicion for a diabetic foot ulcer and for IV antibiotics. He was started on Unasyn and vancomycin. An MRI of the right foot did not show osteomylitis. Dr. Ambriz with Podiatry was consulted and he performed an I&D. Wound culture results were pending. He was discharged on Keflex and Bactrim. In addition, he was prescribed Tramadol for pain control. He was provided with wound care daily instructions. He was instructed to follow-up with Dr. Ambriz. Follow-up: Dr. Ambriz, Podiatry - Discharge Data Discharge Date: 03/28/18 Discharge Disposition: Home, Self-Care 01 Condition: Good - Patient Summary/Data Consults: Consultations 03/27/18 10:34 Consult to Physician [CONS] Routine - Patient Instructions Diet: Diabetic Diet Activity: As Tolerated, Non Weight Bearing (Keep weight off right foot. Elevate foot on pillows.) Wound/Incision Care: Keep Operative Site/Wound Site Clean and Dry, Change Dressing Daily (per podiatry instructions.) - Discharge Plan *PRESCRIPTION DRUG MONITORING PROGRAM REVIEWED*: Not Applicable *COPY OF PRESCRIPTION DRUG MONITORING REPORT IN PATIENT CAROL: Not Applicable Prescriptions/Med Rec: cephALEXin [Keflex] 500 mg PO Q8H 7 Days cap Sulfamethoxazole/Trimethoprim [Bactrim 400-80 MG] 1 each PO BID 7 Days tablet traMADol [Ultram] 50 mg PO TID PRN #21 tab PRN Reason: Pain Home Medications: Home Meds Aspirin 325 mg PO DAILY 05/05/15 [History] ClonazePAM [KlonoPIN] 0.5 mg PO DAILY 05/05/15 [History] Escitalopram [Lexapro] 20 mg PO DAILY 05/05/15 [History] Lisinopril 20 mg PO DAILY 05/05/15 [History] atorvaSTATin [Lipitor] 20 mg PO DAILY 05/05/15 [History] metFORMIN HCl [Glucophage] 1,000 mg PO BID 05/05/15 [History] Insulin Aspart [NovoLOG] 2 unit SUBCUT ASDIRECTED 03/10/17 [History] Empagliflozin [Jardiance] 10 mg 03/23/18 [History] Metoprolol Tartrate 25 mg DAILY 03/23/18 [History] Ranolazine [Ranexa] 500 mg BID 03/23/18 [History] Acetaminophen [Tylenol] 650 mg PO Q4H PRN tablet 03/28/18 [Rx] Sulfamethoxazole/Trimethoprim [Bactrim 400-80 MG] 1 each PO BID 7 Days tablet 03/28/18 [Rx] cephALEXin [Keflex] 500 mg PO Q8H 7 Days cap 03/28/18 [Rx] traMADol [Ultram] 50 mg PO TID PRN #21 tab 03/28/18 [Rx] Patient Handouts: Skin Abscess, [id number], Tramadol tablets, Incision and Drainage, Care After, Cephalexin tablets or capsules, Sulfamethoxazole; Trimethoprim, SMX-TMP tablets Referrals: Jm Ambriz DPM [Physician] - 04/02/18 11:30 am - Discharge Summary/Plan Comment DC Time >30 min.: No - Patient Data Vitals - Most Recent: Last Vital Signs Temp 36.3 C 03/28/18 08:00 Pulse 80 03/28/18 08:59 Resp 18 03/28/18 08:00 BP 145/81 H 03/28/18 08:59 Pulse Ox 94 L 03/28/18 08:00 Weight - Most Recent: 115.621 kg I&O - Last 24 hours: Intake & Output 03/27/18 03/28/18 03/28/18 22:59 06:59 14:59 Intake Total 550 420 Output Total 1500 Balance 550 -1080 Lab Results - Last 24 hrs: Laboratory Results - last 24 hr 03/28/18 03/28/18 Range/Units 05:15 05:15 WBC 10.03 (4.0-11.0) K/uL RBC 5.91 H (4.50-5.90) M/uL Hgb 17.7 H (13.0-17.0) g/dL Hct 52.9 H (38.0-50.0) % MCV 89.5 (80.0-98.0) fL MCH 29.9 (27.0-32.0) pg MCHC 33.5 (31.0-37.0) g/dL RDW Std Deviation 48.3 (28.0-62.0) fl RDW Coeff of Narda 15 (11.0-15.0) % Plt Count 237 (150-400) K/uL MPV 9.40 (7.40-12.00) fL Add Manual Diff YES Neutrophils % (Manual) 57 (48.0-80.0) % Lymphocytes % (Manual) 29 (16.0-40.0) % Monocytes % (Manual) 11 (0.0-15.0) % Eosinophils % (Manual) 3 (0.0-7.0) % Nucleated RBC % 0.0 /100WBC Absolute Seg Neuts 5.7 (1.4-5.7) Lymphocytes # (Manual) 2.9 H (0.6-2.4) Monocytes # (Manual) 1.1 H (0.0-0.8) Eosinophils # (Manual) 0.3 (0.0-0.7) Nucleated RBCs # 0 K/uL Sodium 138 (136-148) mmol/L Potassium 4.6 (3.5-5.1) mmol/L Chloride 105 (98-107) mmol/L Carbon Dioxide 27.6 (21.0-32.0) mmol/L BUN 29 H (7.0-18.0) mg/dL Creatinine 1.8 H (0.8-1.3) mg/dL Est Cr Clr Drug Dosing 43.64 mL/min Estimated GFR (MDRD) 38.7 ml/min Glucose 54 L (74-106) mg/dL Calcium 9.4 (8.5-10.1) mg/dL Total Bilirubin 0.3 (0.2-1.0) mg/dL AST 22 (15-37) IU/L ALT 27 (14-63) IU/L Alkaline Phosphatase 37 L (46-116) U/L Total Protein 6.5 (6.4-8.2) g/dL Albumin 3.1 L (3.4-5.0) g/dL Globulin 3.4 (2.0-3.5) g/dL Albumin/Globulin Ratio 0.9 L (1.3-2.8) Med Orders - Current: Current Medications Acetaminophen (Tylenol) 650 mg PO Q4H PRN PRN Reason: Pain (Mild 1-3)/fever Aspirin (Aspirin) 325 mg PO DAILY [facility] Last Admin: 03/28/18 08:56 Dose: 325 mg Atorvastatin Calcium (Lipitor) 20 mg PO DAILY [facility] Last Admin: 03/28/18 08:57 Dose: 20 mg Clonazepam (Klonopin) 0.5 mg PO DAILY [facility] Last Admin: 03/28/18 08:57 Dose: 0.5 mg Enoxaparin Sodium (Lovenox) 40 mg SUBCUT Q24H [facility] Last Admin: 03/27/18 16:37 Dose: 40 mg Escitalopram Oxalate (Lexapro) 20 mg PO DAILY [facility] Last Admin: 03/28/18 08:57 Dose: 20 mg Ampicillin Sodium/Sulbactam (Sodium 3 gm/ Sodium Chloride) 100 mls @ 200 mls/ hr IV Q6H [facility] Last Admin: 03/28/18 04:13 Dose: 200 mls/hr Lisinopril (Prinivil) 20 mg PO DAILY [facility] Last Admin: 03/28/18 08:59 Dose: 20 mg Metformin HCl (Glucophage) 1,000 mg PO BID [facility] Last Admin: 03/28/18 08:57 Dose: 1,000 mg Metoprolol Tartrate (Lopressor) 25 mg PO DAILY [facility] Last Admin: 03/28/18 08:59 Dose: 25 mg Ondansetron HCl (Zofran Odt) 4 mg PO Q6H PRN PRN Reason: nausea, able to take PO Oxycodone/Acetaminophen (Percocet 325-5 Mg) 2 tab PO Q4H PRN PRN Reason: Pain (moderate 4-6) Last Admin: 03/28/18 09:03 Dose: 2 tab Polyethylene Glycol (Miralax) 17 gm PO DAILY PRN PRN Reason: Constipation Ranolazine (Ranexa) 500 mg PO BID [facility] Last Admin: 03/28/18 08:56 Dose: 500 mg Discontinued Medications Ampicillin Sodium/Sulbactam (Sodium 3 gm/ Sodium Chloride) 100 mls @ 200 mls/ hr IV Q6H [facility] Vancomycin HCl 1 gm/ Sodium (Chloride) 250 mls @ 250 mls/hr IV ONETIME ONE Stop: 03/26/18 17:59 Vancomycin HCl 1 gm/ Sodium (Chloride) 250 mls @ 250 mls/hr IV ONETIME ONE Stop: 03/26/18 18:29 Last Admin: 03/26/18 18:46 Dose: 250 mls/hr Heparin Sodium/Sodium Chloride (Heparin-1/2ns 25,000 Units/500) 25,000 unit in 500 mls @ IV TITRATE [facility]; Protocol Lidocaine (Xylocaine-Mpf 2%) Confirm Administered Dose 5 ml .ROUTE .STK-MED ONE Stop: 03/27/18 18:12 Last Admin: 03/27/18 18:32 Dose: 5 ml Lidocaine HCl (Xylocaine 1%) 3 ml INJECT ONETIME ONE Stop: 03/27/18 18:03 Last Admin: 03/27/18 20:13 Dose: Not Given Nitroglycerin (Nitro-Dur 0.4 Mg/Hr) 0.4 mg TRDERM DAILY [facility] Last Admin: 03/28/18 11:09 Dose: Not Given <Richard Garcia - Last Filed: 03/28/18 17:11> Discharge Summary - Hospital Course HPI Initial Comments: I have examined the patient independently of medical lab technologist. The patient is a 58-year-old gentleman who is known to me from office visits. He had been admitted by me directly to hospitalization with a referral to podiatry for possible diabetic foot ulcer. The patient had his foot ulcer I&D. He tolerated the procedure well. The patient will be discharged on appropriate antibiotic recommendations to follow up with podiatry as well as his primary care physician. I have discussed the case with the medical residents and agree with the assessment and plan of care. Please see orders. - Patient Summary/Data Consults: Consultations 03/27/18 10:34 Consult to Physician [CONS] Routine - Patient Data Vitals - Most Recent: Last Vital Signs Temp 35.6 C 03/28/18 11:29 Pulse 57 L 03/28/18 11:29 Resp 22 H 03/28/18 11:29 BP 141/72 H 03/28/18 11:29 Pulse Ox 96 03/28/18 11:29 I&O - Last 24 hours: Intake & Output 03/28/18 03/28/18 03/28/18 06:59 14:59 22:59 Intake Total 420 Output Total 1500 Balance -1080 Lab Results - Last 24 hrs: Laboratory Results - last 24 hr 03/28/18 03/28/18 Range/Units 05:15 05:15 WBC 10.03 (4.0-11.0) K/uL RBC 5.91 H (4.50-5.90) M/uL Hgb 17.7 H (13.0-17.0) g/dL Hct 52.9 H (38.0-50.0) % MCV 89.5 (80.0-98.0) fL MCH 29.9 (27.0-32.0) pg MCHC 33.5 (31.0-37.0) g/dL RDW Std Deviation 48.3 (28.0-62.0) fl RDW Coeff of Narda 15 (11.0-15.0) % Plt Count 237 (150-400) K/uL MPV 9.40 (7.40-12.00) fL Add Manual Diff YES Neutrophils % (Manual) 57 (48.0-80.0) % Lymphocytes % (Manual) 29 (16.0-40.0) % Monocytes % (Manual) 11 (0.0-15.0) % Eosinophils % (Manual) 3 (0.0-7.0) % Nucleated RBC % 0.0 /100WBC Absolute Seg Neuts 5.7 (1.4-5.7) Lymphocytes # (Manual) 2.9 H (0.6-2.4) Monocytes # (Manual) 1.1 H (0.0-0.8) Eosinophils # (Manual) 0.3 (0.0-0.7) Nucleated RBCs # 0 K/uL Sodium 138 (136-148) mmol/L Potassium 4.6 (3.5-5.1) mmol/L Chloride 105 (98-107) mmol/L Carbon Dioxide 27.6 (21.0-32.0) mmol/L BUN 29 H (7.0-18.0) mg/dL Creatinine 1.8 H (0.8-1.3) mg/dL Est Cr Clr Drug Dosing 43.64 mL/min Estimated GFR (MDRD) 38.7 ml/min Glucose 54 L (74-106) mg/dL Calcium 9.4 (8.5-10.1) mg/dL Total Bilirubin 0.3 (0.2-1.0) mg/dL AST 22 (15-37) IU/L ALT 27 (14-63) IU/L Alkaline Phosphatase 37 L (46-116) U/L Total Protein 6.5 (6.4-8.2) g/dL Albumin 3.1 L (3.4-5.0) g/dL Globulin 3.4 (2.0-3.5) g/dL Albumin/Globulin Ratio 0.9 L (1.3-2.8) Med Orders - Current: Current Medications Acetaminophen (Tylenol) 650 mg PO Q4H PRN PRN Reason: Pain (Mild 1-3)/fever Aspirin (Aspirin) 325 mg PO DAILY [facility] Last Admin: 03/28/18 08:56 Dose: 325 mg Atorvastatin Calcium (Lipitor) 20 mg PO DAILY [facility] Last Admin: 03/28/18 08:57 Dose: 20 mg Clonazepam (Klonopin) 0.5 mg PO DAILY [facility] Last Admin: 03/28/18 08:57 Dose: 0.5 mg Enoxaparin Sodium (Lovenox) 40 mg SUBCUT Q24H [facility] Last Admin: 03/27/18 16:37 Dose: 40 mg Escitalopram Oxalate (Lexapro) 20 mg PO DAILY [facility] Last Admin: 03/28/18 08:57 Dose: 20 mg Ampicillin Sodium/Sulbactam (Sodium 3 gm/ Sodium Chloride) 100 mls @ 200 mls/ hr IV Q6H [facility] Last Admin: 03/28/18 13:20 Dose: 200 mls/hr Lisinopril (Prinivil) 20 mg PO DAILY [facility] Last Admin: 03/28/18 08:59 Dose: 20 mg Metformin HCl (Glucophage) 1,000 mg PO BID [facility] Last Admin: 03/28/18 08:57 Dose: 1,000 mg Metoprolol Tartrate (Lopressor) 25 mg PO DAILY [facility] Last Admin: 03/28/18 08:59 Dose: 25 mg Ondansetron HCl (Zofran Odt) 4 mg PO Q6H PRN PRN Reason: nausea, able to take PO Oxycodone/Acetaminophen (Percocet 325-5 Mg) 2 tab PO Q4H PRN PRN Reason: Pain (moderate 4-6) Last Admin: 03/28/18 15:45 Dose: 2 tab Polyethylene Glycol (Miralax) 17 gm PO DAILY PRN PRN Reason: Constipation Ranolazine (Ranexa) 500 mg PO BID [facility] Last Admin: 03/28/18 08:56 Dose: 500 mg Discontinued Medications Ampicillin Sodium/Sulbactam (Sodium 3 gm/ Sodium Chloride) 100 mls @ 200 mls/ hr IV Q6H [facility] Vancomycin HCl 1 gm/ Sodium (Chloride) 250 mls @ 250 mls/hr IV ONETIME ONE Stop: 03/26/18 17:59 Vancomycin HCl 1 gm/ Sodium (Chloride) 250 mls @ 250 mls/hr IV ONETIME ONE Stop: 03/26/18 18:29 Last Admin: 03/26/18 18:46 Dose: 250 mls/hr Heparin Sodium/Sodium Chloride (Heparin-1/2ns 25,000 Units/500) 25,000 unit in 500 mls @ IV TITRATE [facility]; Protocol Lidocaine (Xylocaine-Mpf 2%) Confirm Administered Dose 5 ml .ROUTE .STK-MED ONE Stop: 03/27/18 18:12 Last Admin: 03/27/18 18:32 Dose: 5 ml Lidocaine HCl (Xylocaine 1%) 3 ml INJECT ONETIME ONE Stop: 03/27/18 18:03 Last Admin: 03/27/18 20:13 Dose: Not Given Nitroglycerin (Nitro-Dur 0.4 Mg/Hr) 0.4 mg TRDERM DAILY [facility] Last Admin: 03/28/18 11:09 Dose: Not Given
== END 2018-03-28 15:57 | disposition home or self-care (01) | DRG 380 ==
LOC: MW.ED 14:30 → EDSTATUS 14:49 → MW.MS 14:51
PROVIDERS: ADMIT Internal Medicine; ATTEND Internal Medicine
PROC: 0J9Q0ZX Drainage of Right Foot Subcutaneous Tissue and Fascia, Open Approach, Diagnostic (ICD-10-PCS; principal; 2018-03-27)
DX: E11.621 Type 2 diabetes mellitus with foot ulcer (principal); L97.519 Non-pressure chronic ulcer of other part of right foot with unspecified severity; I10 Essential (primary) hypertension; L03.115 Cellulitis of right lower limb; Z88.8 Allergy status to other drugs, medicaments and biological substances; H91.91 Unspecified hearing loss, right ear; E78.00 Pure hypercholesterolemia, unspecified; Z79.82 Long term (current) use of aspirin; Z79.899 Other long term (current) drug therapy; Z96.41 Presence of insulin pump (external) (internal); Z79.4 Long term (current) use of insulin; Z95.5 Presence of coronary angioplasty implant and graft
CPT/HCPCS: 36415; 73718-26-RT; 73718-RT; 80053; 85025; 85652; 86140; 87070; A9270-GY; J0295; J1650; J3370; J7030; J7050

== ENCOUNTER 2019-10-14 07:59 | Emergency (ER) | payer BC ==
--- NOTE | 2019-10-14 08:28 | EDM.PDOC ---
ED HPI GENERAL MEDICAL PROBLEM - General Chief Complaint: Chest Pain Stated Complaint: HEADACHE/SOB Time Seen by Provider: 10/14/19 08:26 Source of Information: Reports: Patient, Old Records History Limitations: Reports: No Limitations - History of Present Illness INITIAL COMMENTS - FREE TEXT/NARRATIVE: Patient 59-year-old male presenting with chest pain. Patient has a past medical history of hypertension, diabetes, hyperlipidemia, CAD status post stent. Patient chest pain is been 3 days in duration. Patient reports a sharp sensation in the substernal area. Pain does not radiate and is not exacerbated with exertion. Patient states that the pain worsened this morning and therefore he came into the emergency department. Patient does report associated headache, neck pain, nausea, shortness of breath. Patient denies arm or leg pain, paresthesias. Patient denies fever and cough. Pmhx: Per HPI Pshx: Knee surgeries Family Hx: noncontributory Smoking history? Yes Etoh use? none Drug use? none In addition to that documented in the HPI above, the additional ROS was obtained : Constitutional: Denies fevers or chills Eyes: Denies vision changes ENMT: Denies sore throat CV: Per HPI Resp: Per HPI GI: Denies vomiting or diarrhea : Denies painful urination MSK: Denies recent trauma Skin: Denies new rashes Neuro: Denies new numbness or tingling or weakness Endocrine: Denies unexpected weight loss Heme: Denies bleeding disorders I have reviewed the triage vital signs Const: Nontoxic in appearance. Well nourished, well developed, appears stated age Eyes: PERRL, no conjunctival injection HENT: NCAT, Neck supple without meningismus CV: RRR, Warm, well-perfused extremities RESP: Unlabored respiratory effort. No sensory muscle use GI: soft, non-tender, non-distended, no masses MSK: No gross deformities appreciated Skin: Warm, dry. No rashes Neuro: Alert, housekeeping director II-XII grossly intact. Sensation and motor function of extremities grossly intact. Psych: Appropriate mood and affect Assessment and plan: Patient 59-year-old male with a chief complaint chest pain. Patient was slightly hypertensive on arrival in the emergency department. Patient was well in appearance. Patient's EKG demonstrated no acute abnormalities when compared to old EKG. No evidence of STEMI acute ischemic changes. Labs were performed and within normal limits. Exception, patient did have elevation of creatinine which is at baseline. Chest x-ray within normal limits. My differential diagnosis considered including acute coronary syndrome, aortic dissection, pulmonary embolism. Patient is low risk for PE and has no major risk factors. Aortic dissection seems much less likely given the patient's presentation. The initial troponin was negative, however there are still concerns for acute coronary syndrome. The patient has a heart score 5 and he was recommended to stay in the hospital for observation. The patient initially stated he wanted to stay but change his mind and said he would sign AGAINST MEDICAL ADVICE. The risk and benefits were explained to the patient including and permanent disability. Patient states he understands risks and will come back if symptoms worsen. All questions were addressed and answered. Middle Chest Pain Score (Numeric/FACES): 4 - Related Data Allergies Allergy/AdvReac Type Severity Reaction Status Date / Time Codeine Allergy Hives Uncoded 10/14/19 08:06 Home Meds: Home Meds Aspirin 325 mg PO DAILY 05/05/15 [History] ClonazePAM [KlonoPIN] 0.5 mg PO DAILY 05/05/15 [History] Escitalopram [Lexapro] 20 mg PO DAILY 05/05/15 [History] Lisinopril 20 mg PO DAILY 05/05/15 [History] atorvaSTATin [Lipitor] 20 mg PO DAILY 05/05/15 [History] Insulin Aspart [NovoLOG] 3 unit SUBCUT ASDIRECTED 03/10/17 [History] Metoprolol Tartrate 25 mg BID 03/23/18 [History] Ranolazine [Ranexa] 500 mg BID 03/23/18 [History] Acetaminophen [Tylenol] 650 mg PO Q4H PRN tablet 03/28/18 [Rx] Testosterone Cypionate [Testone Cik] 200 mg PO DAILY 06/15/18 [History] Past Medical History Other HEENT History: Diminished hearing on RIGHT Cardiovascular History: Reports: High Cholesterol, Hypertension, Stents Respiratory History: Reports: None Gastrointestinal History: Reports: None Genitourinary History: Reports: None Other Musculoskeletal History: hx: Fracturing arm Other Neuro History: Right Carpal Tunnel Release Psychiatric History: Reports: Anxiety, Panic Attack Other Psychiatric History: past hx: panic attacks, since starte med regimen no problems Endocrine/Metabolic History: Reports: Diabetes, Type II Other Endocrine/Metabolic History: implanted insulin pump Type of Insulin Used in Pump: Medtronic When was Your Last Insulin Site/Set Changed: 10/14/2019 Who Manages Your Pump: Patient (Self) Basal Rate (Units/hr): 2.4 Do You Give Correction Boluses or Sliding Scale: Yes Hematologic History: Reports: None - Infectious Disease History Infectious Disease History: Reports: Chicken Pox - Past Surgical History HEENT Surgical History: Reports: None Other Cardiovascular Surgeries/Procedures: 2 Stents placed about 20 yrs ago Endocrine Surgical History: Reports: None Neurological Surgical History: Reports: None Other Musculoskeletal Surgeries/Procedures:: 3 Open Left knee surgeries, 2 Lt scopes, Right Knee Scope, Right open shoulder surgery, bilateral shoulder arthroscopies Social & Family History - Family History Family Medical History: Noncontributory Endocrine/Metabolic: Reports: Diabetes, type II - Tobacco Use Smoking Status *Q: Never Smoker - Caffeine Use Caffeine Use: Reports: Coffee - Recreational Drug Use Recreational Drug Use: No - Living Situation & Occupation Living situation: Reports: ED ROS GENERAL - Review of Systems Review Of Systems: See Below ED EXAM, GENERAL - Physical Exam Exam: See Below Course - Vital Signs Last Recorded V/S: Last Vital Signs Temp 36.0 C L 10/14/19 08:08 Pulse 73 10/14/19 08:52 Resp 14 10/14/19 08:52 BP 156/81 H 10/14/19 08:52 Pulse Ox 91 L 10/14/19 08:52 - Orders/Labs/Meds Orders: Active Orders 24 hr Category Date Time Status Blood Glucose Check, Bedside [RC] ONETIME Care 10/14/19 08:29 Active EKG Documentation Completion [RC] STAT Care 10/14/19 08:21 Active Labs: Laboratory Tests 10/14/19 10/14/19 10/14/19 Range/Units 08:15 08:15 08:15 WBC 10.66 (4.0-11.0) K/uL RBC 6.46 H (4.50-5.90) M/uL Hgb 19.4 H (13.0-17.0) g/dL Hct 59.4 H (38.0-50.0) % MCV 92.0 (80.0-98.0) fL MCH 30.0 (27.0-32.0) pg MCHC 32.7 (31.0-37.0) g/dL RDW Std Deviation 49.5 (28.0-62.0) fl RDW Coeff of Narda 15 (11.0-15.0) % Plt Count 218 (150-400) K/uL MPV 9.80 (7.40-12.00) fL Neut % (Auto) 63.0 (48.0-80.0) % Lymph % (Auto) 20.0 (16.0-40.0) % [place] % (Auto) 12.2 (0.0-15.0) % Eos % (Auto) 4.2 (0.0-7.0) % Baso % (Auto) 0.6 (0.0-1.5) % Neut # (Auto) 6.7 H (1.4-5.7) K/uL Lymph # (Auto) 2.1 (0.6-2.4) K/uL [place] # (Auto) 1.3 H (0.0-0.8) K/uL Eos # (Auto) 0.5 (0.0-0.7) K/uL Baso # (Auto) 0.1 (0.0-0.1) K/uL Nucleated RBC % 0.0 /100WBC Nucleated RBCs # 0 K/uL INR 1.05 Sodium 138 (136-148) mmol/L Potassium 4.5 (3.5-5.1) mmol/L Chloride 103 (98-107) mmol/L Carbon Dioxide 25.6 (21.0-32.0) mmol/L BUN 27 H (7.0-18.0) mg/dL Creatinine 2.2 H (0.8-1.3) mg/dL Est Cr Clr Drug Dosing 34.11 mL/min Estimated GFR (MDRD) 30.6 ml/min Glucose 126 H (74-106) mg/dL POC Glucose (60-110) mg/dL Calcium 8.5 (8.5-10.1) mg/dL Total Bilirubin 0.4 (0.2-1.0) mg/dL AST 27 (15-37) IU/L ALT 34 (14-63) IU/L Alkaline Phosphatase 49 (46-116) U/L Troponin I < 0.050 (0.000-0.056) ng/mL Total Protein 7.0 (6.4-8.2) g/dL Albumin 3.6 (3.4-5.0) g/dL Globulin 3.4 (2.6-4.0) g/dL Albumin/Globulin Ratio 1.1 (0.9-1.6) 10/14/19 Range/Units 08:33 WBC (4.0-11.0) K/uL RBC (4.50-5.90) M/uL Hgb (13.0-17.0) g/dL Hct (38.0-50.0) % MCV (80.0-98.0) fL MCH (27.0-32.0) pg MCHC (31.0-37.0) g/dL RDW Std Deviation (28.0-62.0) fl RDW Coeff of Narda (11.0-15.0) % Plt Count (150-400) K/uL MPV (7.40-12.00) fL Neut % (Auto) (48.0-80.0) % Lymph % (Auto) (16.0-40.0) % [place] % (Auto) (0.0-15.0) % Eos % (Auto) (0.0-7.0) % Baso % (Auto) (0.0-1.5) % Neut # (Auto) (1.4-5.7) K/uL Lymph # (Auto) (0.6-2.4) K/uL [place] # (Auto) (0.0-0.8) K/uL Eos # (Auto) (0.0-0.7) K/uL Baso # (Auto) (0.0-0.1) K/uL Nucleated RBC % /100WBC Nucleated RBCs # K/uL INR Sodium (136-148) mmol/L Potassium (3.5-5.1) mmol/L Chloride (98-107) mmol/L Carbon Dioxide (21.0-32.0) mmol/L BUN (7.0-18.0) mg/dL Creatinine (0.8-1.3) mg/dL Est Cr Clr Drug Dosing mL/min Estimated GFR (MDRD) ml/min Glucose (74-106) mg/dL POC Glucose 118 H (60-110) mg/dL Calcium (8.5-10.1) mg/dL Total Bilirubin (0.2-1.0) mg/dL AST (15-37) IU/L ALT (14-63) IU/L Alkaline Phosphatase (46-116) U/L Troponin I (0.000-0.056) ng/mL Total Protein (6.4-8.2) g/dL Albumin (3.4-5.0) g/dL Globulin (2.6-4.0) g/dL Albumin/Globulin Ratio (0.9-1.6) Departure - Departure Time of Disposition: 09:24 Disposition: Against Medical Advice 07 Clinical Impression: Chest pain, unspecified Qualifiers: Chest pain type: unspecified Qualified Code(s): R07.9 - Chest pain, unspecified Instructions: Nonspecific Chest Pain, Adult Referrals: Ange Patterson PA [Primary Care Provider] - Forms: ED Department Discharge Additional Instructions: The following information is given to patients seen in the emergency department who are being discharged to home. This information is to outline your options for follow-up care. We provide all patients seen in our emergency department with a follow-up referral. The need for follow-up, as well as the timing and circumstances, are variable depending upon the specifics of your emergency department visit. If you don't have a primary care physician on staff, we will provide you with a referral. We always advise you to contact your personal physician following an emergency department visit to inform them of the circumstance of the visit and for follow-up with them and/or the need for any referrals to a consulting specialist. The emergency department will also refer you to a specialist when appropriate. This referral assures that you have the opportunity for follow-up care with a specialist. All of these measure are taken in an effort to provide you with optimal care, which includes your follow-up. Under all circumstances we always encourage you to contact your private physician who remains a resource for coordinating your care. When calling for follow-up care, please make the office aware that this follow-up is from your recent emergency room visit. If for any reason you are refused follow-up, please contact the [facility] Emergency Department at and asked to speak to the emergency department charge nurse. You are leaving the hospital AGAINST MEDICAL ADVICE, you are at risk from worsening of your symptoms, heart attack, permanent disability, and . You advised to stay in the hospital for further observation and testing. Since you are leaving against medical advice, please return to the hospital as soon as possible. Sepsis Event Note - Evaluation Sepsis Screening Result: No Definite Risk - Focused Exam Vital Signs: Vital Signs Temp Pulse Resp BP Pulse Ox 10/14/19 08:52 73 14 156/81 H 91 L 10/14/19 08:37 75 11 L 157/81 H 91 L 10/14/19 08:23 76 17 169/83 H 93 L 10/14/19 08:08 36.0 C L 77 17 150/96 H 94 L Date Exam was Performed: 10/14/19 Time Exam was Performed: 09:22 - My Orders Last 24 Hours: My Active Orders 10/14/19 08:21 EKG Documentation Completion [RC] STAT 10/14/19 08:29 Blood Glucose Check, Bedside [RC] ONETIME - Assessment/Plan Last 24 Hours: My Active Orders 10/14/19 08:21 EKG Documentation Completion [RC] STAT 10/14/19 08:29 Blood Glucose Check, Bedside [RC] ONETIME
[2019-10-14 08:56] LABS: BLOOD UREA NITROGEN,BUN 27 mg/dL (7.0-18.0); CARBON DIOXIDE,CO2 25.6 mmol/L (21.0-32.0); CHLORIDE,CL 103 mmol/L (98-107); GLUCOSE RANDOM 126 mg/dL (74-106); POTASSIUM,K 4.5 mmol/L (3.5-5.1); SODIUM,NA 138 mmol/L (136-148)
--- NOTE | 2019-10-14 08:57 | CR ---
EXAM DATE: 10/14/19 PATIENT'S AGE: 59 Chest: Portable view of the chest was obtained. Comparison: Prior chest x-ray of 06/15/18. Heart size and mediastinum are within normal limits for portable technique. Lungs show no acute parenchymal change. Bony structures are grossly intact. Impression: 1. Nothing acute is identified on portable chest x-ray. Diagnostic code #1 This report was dictated in MDT Report Signed by Proxy. ANGIE
[2019-10-14 09:10] VITALS: BP 156/81; PULSE 73
== END 2019-10-14 09:15 | disposition left against medical advice (07) ==
LOC: MW.ED 07:59
DX: R07.2 Precordial pain (principal); I10 Essential (primary) hypertension; E11.9 Type 2 diabetes mellitus without complications; E78.5 Hyperlipidemia, unspecified; F41.9 Anxiety disorder, unspecified; I25.10 Atherosclerotic heart disease of native coronary artery without angina pectoris; Z95.5 Presence of coronary angioplasty implant and graft; Z88.5 Allergy status to narcotic agent; Z79.82 Long term (current) use of aspirin; Z79.899 Other long term (current) drug therapy; Z79.4 Long term (current) use of insulin
CPT/HCPCS: 36415; 71045; 71045-26; 80053; 82962; 84484; 85025; 85610; 93005; 99283; 99285-25

== ENCOUNTER 2019-11-18 09:19 | Emergency (ER) | payer BC ==
--- NOTE | 2019-11-18 09:35 | EDM.PDOC ---
ED HPI GENERAL MEDICAL PROBLEM - General Chief Complaint: Chest Pain Stated Complaint: CHEST PAIN Time Seen by Provider: 11/18/19 09:35 Source of Information: Reports: Patient History Limitations: Reports: No Limitations - History of Present Illness INITIAL COMMENTS - FREE TEXT/NARRATIVE: Patient is a 59-year-old male who is complaining of having episodic chest pain which started 3 days ago. Patient's denying any exertional component for the chest pain which seems to last only for a few seconds each time and does radiate up to his neck. He is at times feeling short of breath and he is having some dyspnea on exertion. He denies any fever chills denies having any cough. Denies any swelling to his ankles or calfs. He denies having any bloody or tarry looking stools. Patient describes the chest pain as sharp and stabbing. He does have a cardiac history with having PTCA with stents placed 20 years ago. Patient is an insulin-dependent diabetic and has been treated for hypertension hypercholesterolemia. Patient does not smoke cigarettes but does chew tobacco. Patient was having similar symptoms 2 weeks ago and was seen in the ED and refused admission at that time. Patient states his last stress test was approximately 5 years ago. He has no family history for coronary artery disease. Patient has not been nauseous or diaphoretic with his symptoms. At times pain does radiate to his right jaw and to both arms. Patient has not taken anything for his current symptoms. He does take a full aspirin every day which he has taken today. Duration: Day(s): (Three) Location: Reports: Chest Quality: Reports: Pressure, Sharp Severity: Moderate Improves with: Reports: None Worsens with: Reports: None Associated Symptoms: Reports: No Other Symptoms chest Pain Score (Numeric/FACES): 3 - Related Data Allergies Allergy/AdvReac Type Severity Reaction Status Date / Time Codeine Allergy Hives Uncoded 11/18/19 09:35 Home Meds: Home Meds Aspirin 325 mg PO DAILY 05/05/15 [History] ClonazePAM [KlonoPIN] 0.5 mg PO DAILY 05/05/15 [History] Escitalopram [Lexapro] 20 mg PO DAILY 05/05/15 [History] Lisinopril 20 mg PO DAILY 05/05/15 [History] atorvaSTATin [Lipitor] 20 mg PO DAILY 05/05/15 [History] Insulin Aspart [NovoLOG] 3 unit SUBCUT ASDIRECTED 03/10/17 [History] Metoprolol Tartrate 25 mg BID 03/23/18 [History] Ranolazine [Ranexa] 500 mg BID 03/23/18 [History] Acetaminophen [Tylenol] 650 mg PO Q4H PRN tablet 03/28/18 [Rx] Testosterone Cypionate [Testone Cik] 200 mg PO DAILY 06/15/18 [History] Past Medical History Other HEENT History: Diminished hearing on RIGHT Cardiovascular History: Reports: High Cholesterol, Hypertension, Stents Respiratory History: Reports: None Gastrointestinal History: Reports: None Genitourinary History: Reports: None Other Musculoskeletal History: hx: Fracturing arm Other Neuro History: Right Carpal Tunnel Release Psychiatric History: Reports: Anxiety, Panic Attack Other Psychiatric History: past hx: panic attacks, since starte med regimen no problems Endocrine/Metabolic History: Reports: Diabetes, Type II Other Endocrine/Metabolic History: implanted insulin pump Hematologic History: Reports: None - Infectious Disease History Infectious Disease History: Reports: Chicken Pox - Past Surgical History HEENT Surgical History: Reports: None Other Cardiovascular Surgeries/Procedures: 2 Stents placed about 20 yrs ago Endocrine Surgical History: Reports: None Neurological Surgical History: Reports: None Other Musculoskeletal Surgeries/Procedures:: 3 Open Left knee surgeries, 2 Lt scopes, Right Knee Scope, Right open shoulder surgery, bilateral shoulder arthroscopies Social & Family History - Family History Family Medical History: Noncontributory Endocrine/Metabolic: Reports: Diabetes, type II - Caffeine Use Caffeine Use: Reports: Coffee - Living Situation & Occupation Living situation: Reports: ED ROS GENERAL - Review of Systems Review Of Systems: Comprehensive ROS is negative, except as noted in HPI. ED EXAM, GENERAL - Physical Exam Exam: See Below Exam Limited By: No Limitations General Appearance: Alert, No Apparent Distress Head: Atraumatic Neck: Normal Inspection, Supple Respiratory/Chest: No Respiratory Distress, Lungs Clear, Normal Breath Sounds Cardiovascular: Regular Rate, Rhythm, No Edema GI/Abdominal: Normal Bowel Sounds, Soft, Non-Tender Back Exam: Normal Inspection Extremities: Normal Inspection, No Pedal Edema Neurological: Alert, Oriented Psychiatric: Normal Affect Skin Exam: Warm, Dry EKG INTERPRETATION Rhythm: NSR ST-T: Normal (Patient has Q waves in the anterior leads indicating an old anterior myocardial infarction. I do not appreciate any ST or T wave changes.) Course - Vital Signs Text/Narrative:: Patient remains free of chest pain. His initial troponin was elevated 0.172. Patient was discussed with Dr. Monson at [facility] who has accepted him for transfer to the emergency department. Dr. Monson prefers Lovenox versus heparin drip. Patient is aware he is being transferred and will most likely need another PTCA. Patient's other labs are unremarkable. Chest x-ray shows no acute disease. Patient continues to have episodic chest pain. I am putting in an inch of Nitropaste on and given some Tylenol for the impending headache. He has no chest pain right this moment. Last Recorded V/S: Last Vital Signs Temp 37.9 C 11/18/19 10:41 Pulse 80 11/18/19 12:25 Resp 18 11/18/19 12:25 BP 139/67 11/18/19 12:25 Pulse Ox 95 11/18/19 12:25 - Orders/Labs/Meds Labs: Laboratory Tests 11/18/19 11/18/19 11/18/19 Range/Units 09:36 09:36 09:36 WBC 13.16 H (4.0-11.0) K/uL RBC 5.95 H (4.50-5.90) M/uL Hgb 17.9 H (13.0-17.0) g/dL Hct 55.0 H (38.0-50.0) % MCV 92.4 (80.0-98.0) fL MCH 30.1 (27.0-32.0) pg MCHC 32.5 (31.0-37.0) g/dL RDW Std Deviation 51.7 (28.0-62.0) fl RDW Coeff of Narda 15 (11.0-15.0) % Plt Count 214 (150-400) K/uL MPV 9.90 (7.40-12.00) fL Neut % (Auto) 72.7 (48.0-80.0) % Lymph % (Auto) 12.2 L (16.0-40.0) % [place] % (Auto) 11.8 (0.0-15.0) % Eos % (Auto) 2.8 (0.0-7.0) % Baso % (Auto) 0.5 (0.0-1.5) % Neut # (Auto) 9.6 H (1.4-5.7) K/uL Lymph # (Auto) 1.6 (0.6-2.4) K/uL [place] # (Auto) 1.6 H (0.0-0.8) K/uL Eos # (Auto) 0.4 (0.0-0.7) K/uL Baso # (Auto) 0.1 (0.0-0.1) K/uL Nucleated RBC % 0.0 /100WBC Nucleated RBCs # 0 K/uL INR 1.04 D-Dimer, Quantitative 0.34 (0.0-0.50) mg/L FEU Sodium 137 (136-148) mmol/L Potassium 4.9 (3.5-5.1) mmol/L Chloride 104 (98-107) mmol/L Carbon Dioxide 26.2 (21.0-32.0) mmol/L BUN 22 H (7.0-18.0) mg/dL Creatinine 2.0 H (0.8-1.3) mg/dL Est Cr Clr Drug Dosing 38.79 mL/min Estimated GFR (MDRD) 34.1 ml/min Glucose 88 (74-106) mg/dL Calcium 8.6 (8.5-10.1) mg/dL Total Bilirubin 0.5 (0.2-1.0) mg/dL AST 41 H (15-37) IU/L ALT 30 (14-63) IU/L Alkaline Phosphatase 36 L (46-116) U/L Troponin I 0.172 H* (0.000-0.056) ng/mL Total Protein 6.8 (6.4-8.2) g/dL Albumin 3.3 L (3.4-5.0) g/dL Globulin 3.5 (2.6-4.0) g/dL Albumin/Globulin Ratio 0.9 (0.9-1.6) Procalcitonin (<0.10) ng/mL 11/18/19 Range/Units 09:36 WBC (4.0-11.0) K/uL RBC (4.50-5.90) M/uL Hgb (13.0-17.0) g/dL Hct (38.0-50.0) % MCV (80.0-98.0) fL MCH (27.0-32.0) pg MCHC (31.0-37.0) g/dL RDW Std Deviation (28.0-62.0) fl RDW Coeff of Narda (11.0-15.0) % Plt Count (150-400) K/uL MPV (7.40-12.00) fL Neut % (Auto) (48.0-80.0) % Lymph % (Auto) (16.0-40.0) % [place] % (Auto) (0.0-15.0) % Eos % (Auto) (0.0-7.0) % Baso % (Auto) (0.0-1.5) % Neut # (Auto) (1.4-5.7) K/uL Lymph # (Auto) (0.6-2.4) K/uL [place] # (Auto) (0.0-0.8) K/uL Eos # (Auto) (0.0-0.7) K/uL Baso # (Auto) (0.0-0.1) K/uL Nucleated RBC % /100WBC Nucleated RBCs # K/uL INR D-Dimer, Quantitative (0.0-0.50) mg/L FEU Sodium (136-148) mmol/L Potassium (3.5-5.1) mmol/L Chloride (98-107) mmol/L Carbon Dioxide (21.0-32.0) mmol/L BUN (7.0-18.0) mg/dL Creatinine (0.8-1.3) mg/dL Est Cr Clr Drug Dosing mL/min Estimated GFR (MDRD) ml/min Glucose (74-106) mg/dL Calcium (8.5-10.1) mg/dL Total Bilirubin (0.2-1.0) mg/dL AST (15-37) IU/L ALT (14-63) IU/L Alkaline Phosphatase (46-116) U/L Troponin I (0.000-0.056) ng/mL Total Protein (6.4-8.2) g/dL Albumin (3.4-5.0) g/dL Globulin (2.6-4.0) g/dL Albumin/Globulin Ratio (0.9-1.6) Procalcitonin <0.05 (<0.10) ng/mL Meds: Medications Discontinued Medications Generic Name Dose Route Start Last Admin Trade Name Sugar PRN Reason Stop Dose Admin Acetaminophen 650 mg 11/18/19 12:06 11/18/19 12:24 Tylenol PO 11/18/19 12:07 650 mg NOW ONE Administration Enoxaparin Sodium 120 mg 11/18/19 11:02 11/18/19 11:39 Lovenox SUBCUT 11/18/19 11:03 120 mg ONETIME ONE Administration Nitroglycerin 1 gm 11/18/19 12:06 11/18/19 12:25 Nitro-Bid 2% TOP 11/18/19 12:07 1 gm ONETIME ONE Administration Departure - Departure Time of Disposition: 11:13 Disposition: DC/Tfer to Acute Hospital 02 Reason for Transfer *Q: Other (Acute coronary syndrome.) Condition: Fair Clinical Impression: Acute coronary syndrome with high troponin, Acute coronary syndrome Referrals: PCP,None [Primary Care Provider] - Forms: ED Department Discharge Care Plan Goals: Answer to [facility] emergency department. Sepsis Event Note - Focused Exam Date Exam was Performed: 11/27/19 Time Exam was Performed: 00:16
[2019-11-18 10:13] LABS: CARBON DIOXIDE,CO2 26.2 mmol/L (21.0-32.0); POTASSIUM,K 4.9 mmol/L (3.5-5.1)
--- NOTE | 2019-11-18 10:28 | CR ---
Chest: 2 views of the chest were obtained. Comparison: Prior chest x-ray of 10/14/19. Heart size and mediastinum are within normal limits. Lungs are clear with no acute parenchymal change. Bony structures shows mild degenerative change within the lower thoracic spine. Impression: 1. Nothing acute is appreciated on 2 view chest x-ray. Diagnostic code #2 This report was dictated in MDT
[2019-11-18] MEDS ORDERED: Enoxaparin 150 MG/1 ML Syringe SUBCUT ONE (11:02)
[2019-11-18] MEDS ORDERED: Nitroglycerin 2% Oint 1 GM UD Packet TOP ONE (12:06)
[2019-11-18] MEDS ORDERED: Acetaminophen 325 MG Tab PO ONE (12:06)
[2019-11-18 12:26] VITALS: BP 139/67; PULSE 80
== END 2019-11-18 12:43 ==
LOC: MW.ED 09:19
DX: I24.9 Acute ischemic heart disease, unspecified (principal); R74.8 Abnormal levels of other serum enzymes; E78.00 Pure hypercholesterolemia, unspecified; E11.9 Type 2 diabetes mellitus without complications; I10 Essential (primary) hypertension; Z95.5 Presence of coronary angioplasty implant and graft; Z79.82 Long term (current) use of aspirin; Z79.4 Long term (current) use of insulin; Z79.899 Other long term (current) drug therapy; Z88.5 Allergy status to narcotic agent
CPT/HCPCS: 36415; 71046; 80053; 84145; 84484; 85025; 85379; 85610; 93005; 96372; 99285; A9270; J1650; 99284

== ENCOUNTER 2019-12-18 10:40 | Emergency (ER) | payer BC ==
[2019-12-18] MEDS ORDERED: Sodium Chloride 0.9% 10 ML Syringe FLUSH PRN (10:55)
[2019-12-18] MEDS ORDERED: Sodium Chloride 0.9% 2.5 ML Syringe FLUSH PRN (10:55)
--- NOTE | 2019-12-18 10:58 | EDM.PDOC ---
ED HPI GENERAL MEDICAL PROBLEM - General Chief Complaint: General Stated Complaint: REFERAL FROM DR. CORRALES Time Seen by Provider: 12/18/19 10:45 - History of Present Illness INITIAL COMMENTS - FREE TEXT/NARRATIVE: History of present illness: Dr. Corrales of the nephrology service called me and tell me this patient had an elevated potassium on lab work and that she wanted to make sure that his kidney function was good, have his potassium treated as needed, and the evaluated for possible urinary tract obstruction if his kidneys were failing. Patient has no symptoms. He 3 and half weeks ago was told that they had to make sure his kidneys were good so he could have angiography and coronary bypass. He underwent a 5 vessel bypass. He is recovered nicely. He has no complaints. He says he is passing his urine okay but it has been slow at times. A week ago he was having little more trouble and that is when the lab was done on the 10th of this month. Then he has no symptoms today. Is called in because of an elevated potassium on lab work. [] Review of systems: As per history of present illness and below otherwise all systems reviewed and negative. Past medical history: As per history of present illness and as reviewed below otherwise noncontributory. Surgical history: As per history of present illness and as reviewed below otherwise noncontributory. Social history: No reported history of drug or alcohol abuse. Family history: As per history of present illness and as reviewed below otherwise noncontributory. Physical exam: HEENT: Atraumatic, normocephalic, pupils reactive, negative for conjunctival pallor or scleral icterus, mucous membranes moist, throat clear, neck supple, nontender, trachea midline. Lungs: Clear to auscultation, breath sounds equal bilaterally, chest nontender. Heart: S1S2, regular, negative for clicks, rubs, or JVD. Abdomen: Soft, nondistended, nontender. Negative for masses or hepatosplenomegaly. Negative for costovertebral tenderness. Pelvis: Stable nontender. Genitourinary: Deferred. Rectal: Deferred. Extremities: Atraumatic, negative for cords or calf pain. Neurovascular unremarkable. Neuro: Awake, alert, oriented. Cranial nerves II through XII unremarkable. Ce rebellum unremarkable. Motor and sensory unremarkable throughout. Exam nonfocal. Diagnostics: EKG was done to rule out immediate life-threatening hyperkalemia. Lab work was done and based on the lab work further diagnostics to ascertain the cause of his renal failure if necessary. EKG shows a sinus rhythm with incomplete left bundle branch block and a heart rate of 65 and an axis of -47. This is compared to an EKG done 1 month ago and there is no significant change. Impression is no arrhythmia no evidence of acute injury and there is no evidence of acute life-threatening hyperkalemia on this EKG. [] Therapeutics: [] Impression: The patient's potassium was in the normal range which was expected after seeing the EKG. BUN and creatinine were actually improved from most recent exam. He did void completely and had 529 mL residual on the bladder scanner. Refused a Reece catheter and agreed to follow-up with urology. [] Plan: Refer to nephrology and urology. [] Definitive disposition and diagnosis as appropriate pending reevaluation and review of above. - Related Data Allergies Allergy/AdvReac Type Severity Reaction Status Date / Time Codeine Allergy Hives Uncoded 12/18/19 10:55 Home Meds: Home Meds Aspirin 325 mg PO DAILY 05/05/15 [History] ClonazePAM [KlonoPIN] 0.5 mg PO DAILY 05/05/15 [History] Escitalopram [Lexapro] 20 mg PO DAILY 05/05/15 [History] Lisinopril 20 mg PO DAILY 05/05/15 [History] atorvaSTATin [Lipitor] 20 mg PO DAILY 05/05/15 [History] Insulin Aspart [NovoLOG] 3 unit SUBCUT ASDIRECTED 03/10/17 [History] Metoprolol Tartrate 25 mg BID 03/23/18 [History] Acetaminophen [Tylenol] 650 mg PO Q4H PRN tablet 03/28/18 [Rx] Testosterone Cypionate [Testone Cik] 250 mg PO WEEKLY 06/15/18 [History] Cinnamon Bark [Cinnamon] 1,200 mg PO BID 12/18/19 [History] Gabapentin [Neurontin] 1,800 mg PO BID 12/18/19 [History] Garlic mg PO DAILY 12/18/19 [History] Past Medical History HEENT History: Reports: Other (See Below) Other HEENT History: Diminished hearing on RIGHT Cardiovascular History: Reports: High Cholesterol, Hypertension, Stents Respiratory History: Reports: None Gastrointestinal History: Reports: None Genitourinary History: Reports: None Musculoskeletal History: Reports: Other (See Below) Other Musculoskeletal History: hx: Fracturing arm Neurological History: Reports: Other (See Below) Other Neuro History: Right Carpal Tunnel Release Psychiatric History: Reports: Anxiety, Panic Attack Other Psychiatric History: past hx: panic attacks, since starte med regimen no problems Endocrine/Metabolic History: Reports: Diabetes, Type II Other Endocrine/Metabolic History: implanted insulin pump Hematologic History: Reports: None Immunologic History: Reports: None Oncologic (Cancer) History: Reports: None Dermatologic History: Reports: None - Infectious Disease History Infectious Disease History: Reports: Chicken Pox - Past Surgical History HEENT Surgical History: Reports: None Other Cardiovascular Surgeries/Procedures: 2 Stents placed about 20 yrs ago Endocrine Surgical History: Reports: None Neurological Surgical History: Reports: None Other Musculoskeletal Surgeries/Procedures:: 3 Open Left knee surgeries, 2 Lt scopes, Right Knee Scope, Right open shoulder surgery, bilateral shoulder arthroscopies Social & Family History - Family History Family Medical History: Noncontributory Endocrine/Metabolic: Reports: Diabetes, type II - Caffeine Use Caffeine Use: Reports: Coffee - Living Situation & Occupation Living situation: Reports: ED ROS GENERAL - Review of Systems Review Of Systems: Comprehensive ROS is negative, except as noted in HPI. ED EXAM, GENERAL - Physical Exam Exam: See Below Exam Limited By: No Limitations General Appearance: Alert Course - Vital Signs Last Recorded V/S: Last Vital Signs Temp 96.7 F L 12/18/19 10:59 Pulse 52 L 12/18/19 10:59 Resp 18 12/18/19 10:59 BP 122/57 L 12/18/19 10:59 Pulse Ox 93 L 12/18/19 10:59 - Orders/Labs/Meds Orders: Active Orders 24 hr Category Date Time Status EKG Documentation Completion [RC] STAT Care 12/18/19 10:55 Active Sodium Chloride 0.9% [Saline Flush] Med 12/18/19 10:55 Active 10 ml FLUSH ASDIRECTED PRN Sodium Chloride 0.9% [Saline Flush] Med 12/18/19 10:55 Active 2.5 ml FLUSH ASDIRECTED PRN Saline Lock Insert [OM.PC] Stat Oth 12/18/19 10:55 Ordered Medication Orders Sodium Chloride (Saline Flush) 10 ml FLUSH ASDIRECTED PRN PRN Reason: Keep Vein Open Last Admin: 12/18/19 11:23 Dose: 10 ml Documented by: HEBERT Sodium Chloride (Saline Flush) 2.5 ml FLUSH ASDIRECTED PRN PRN Reason: Keep Vein Open Last Admin: 12/18/19 11:23 Dose: 2.5 ml Documented by: [email or web address] Labs: Laboratory Tests 12/18/19 12/18/19 Range/Units 10:55 11:20 WBC 8.84 (4.0-11.0) K/uL RBC 5.03 (4.50-5.90) M/uL Hgb 14.2 (13.0-17.0) g/dL Hct 44.8 (38.0-50.0) % MCV 89.1 (80.0-98.0) fL MCH 28.2 (27.0-32.0) pg MCHC 31.7 (31.0-37.0) g/dL RDW Std Deviation 47.3 (28.0-62.0) fl RDW Coeff of Narda 15 (11.0-15.0) % Plt Count 351 (150-400) K/uL MPV 9.00 (7.40-12.00) fL Neut % (Auto) 54.1 (48.0-80.0) % Lymph % (Auto) 23.2 (16.0-40.0) % [place] % (Auto) 10.0 (0.0-15.0) % Eos % (Auto) 12.0 H (0.0-7.0) % Baso % (Auto) 0.7 (0.0-1.5) % Neut # (Auto) 4.8 (1.4-5.7) K/uL Lymph # (Auto) 2.1 (0.6-2.4) K/uL [place] # (Auto) 0.9 H (0.0-0.8) K/uL Eos # (Auto) 1.1 H (0.0-0.7) K/uL Baso # (Auto) 0.1 (0.0-0.1) K/uL Nucleated RBC % 0.0 /100WBC Nucleated RBCs # 0 K/uL Sodium 139 (136-148) mmol/L Potassium 4.8 (3.5-5.1) mmol/L Chloride 104 (98-107) mmol/L Carbon Dioxide 27.3 (21.0-32.0) mmol/L BUN 35 H (7.0-18.0) mg/dL Creatinine 1.7 H (0.8-1.3) mg/dL Est Cr Clr Drug Dosing 45.63 mL/min Estimated GFR (MDRD) 41.2 ml/min Glucose 112 H (74-106) mg/dL Calcium 9.3 (8.5-10.1) mg/dL Total Bilirubin 0.3 (0.2-1.0) mg/dL AST 21 (15-37) IU/L ALT 26 (14-63) IU/L Alkaline Phosphatase 79 (46-116) U/L Total Protein 7.7 (6.4-8.2) g/dL Albumin 3.4 (3.4-5.0) g/dL Globulin 4.3 H (2.6-4.0) g/dL Albumin/Globulin Ratio 0.8 L (0.9-1.6) Meds: Medications Generic Name Dose Route Start Last Admin Trade Name Freq PRN Reason Stop Dose Admin Sodium Chloride 10 ml 12/18/19 10:55 12/18/19 11:23 Saline Flush FLUSH 10 ml ASDIRECTED PRN Administration Keep Vein Open Sodium Chloride 2.5 ml 12/18/19 10:55 12/18/19 11:23 Saline Flush FLUSH 2.5 ml ASDIRECTED PRN Administration Keep Vein Open Departure - Departure Time of Disposition: 12:29 Disposition: Admitted As Inpatient 64 Condition: Good Clinical Impression: Chronic renal failure, History of hypokalemia - Discharge Information *PRESCRIPTION DRUG MONITORING PROGRAM REVIEWED*: Not Applicable *COPY OF PRESCRIPTION DRUG MONITORING REPORT IN PATIENT CAROL: Not Applicable Referrals: Ange Patterson PA [Primary Care Provider] - Forms: ED Department Discharge Additional Instructions: The following information is given to patients seen in the emergency department who are being discharged to home. This information is to outline your options for follow-up care. We provide all patients seen in our emergency department with a follow-up referral. The need for follow-up, as well as the timing and circumstances, are variable depending upon the specifics of your emergency department visit. If you don't have a primary care physician on staff, we will provide you with a referral. We always advise you to contact your personal physician following an emergency department visit to inform them of the circumstance of the visit and for follow-up with them and/or the need for any referrals to a consulting specialist. The emergency department will also refer you to a specialist when appropriate. This referral assures that you have the opportunity for follow-up care with a specialist. All of these measure are taken in an effort to provide you with optimal care, which includes your follow-up. Under all circumstances we always encourage you to contact your private physician who remains a resource for coordinating your care. When calling for follow-up care, please make the office aware that this follow-up is from your recent emergency room visit. If for any reason you are refused follow-up, please contact the [facility] Emergency Department at and asked to speak to the emergency department charge nurse. [facility] [place] - Urology [address] [place] [id number] Sepsis Event Note (ED) - Focused Exam Vital Signs: Vital Signs Temp Pulse Resp BP Pulse Ox 12/18/19 10:59 96.7 F L 52 L 18 122/57 L 93 L - My Orders Last 24 Hours: My Active Orders 12/18/19 10:55 EKG Documentation Completion [RC] STAT Sodium Chloride 0.9% [Saline Flush] 10 ml FLUSH ASDIRECTED PRN Sodium Chloride 0.9% [Saline Flush] 2.5 ml FLUSH ASDIRECTED PRN Saline Lock Insert [OM.PC] Stat - Assessment/Plan Last 24 Hours: My Active Orders 12/18/19 10:55 EKG Documentation Completion [RC] STAT Sodium Chloride 0.9% [Saline Flush] 10 ml FLUSH ASDIRECTED PRN Sodium Chloride 0.9% [Saline Flush] 2.5 ml FLUSH ASDIRECTED PRN Saline Lock Insert [OM.PC] Stat
[2019-12-18 11:54] LABS: CARBON DIOXIDE,CO2 27.3 mmol/L (21.0-32.0); POTASSIUM,K 4.8 mmol/L (3.5-5.1)
[2019-12-18 12:28] VITALS: BP 137/69; PULSE 62
== END 2019-12-18 12:45 | disposition critical access hospital (66) ==
LOC: MW.ED 10:40
DX: I12.9 Hypertensive chronic kidney disease with stage 1 through stage 4 chronic kidney disease, or unspecified chronic kidney disease (principal); N18.9 Chronic kidney disease, unspecified; E78.00 Pure hypercholesterolemia, unspecified; Z95.5 Presence of coronary angioplasty implant and graft; F41.9 Anxiety disorder, unspecified; E11.9 Type 2 diabetes mellitus without complications; Z79.4 Long term (current) use of insulin; Z79.82 Long term (current) use of aspirin; Z79.899 Other long term (current) drug therapy; Z86.39 Personal history of other endocrine, nutritional and metabolic disease
CPT/HCPCS: 36415; 80053; 85025; 93005; 99284; 99285-25

== ENCOUNTER 2020-02-23 22:42 | Emergency (ER) | payer BC ==
[2020-02-23] MEDS ORDERED: Tranexamic Acid 1,000 MG in Sodium Chloride 0.9% 100 ML IV ONE (22:53)
--- NOTE | 2020-02-23 23:23 | EDM.PDOC ---
ED HPI GENERAL MEDICAL PROBLEM - General Chief Complaint: Respiratory Problem Stated Complaint: TONGUE SWOLLEN,TROUBLE BREATHING Time Seen by Provider: 02/23/20 22:48 Source of Information: Reports: Patient - History of Present Illness INITIAL COMMENTS - FREE TEXT/NARRATIVE: History of present illness: 59-year-old male presenting with tongue and mouth swelling since 9:45 PM tonight when he woke up. Apparently he felt normal when he went to bed at 8 PM and then got up at 9:45 PM and noticed that his mouth and tongue were swollen and he felt that he had some possibly difficulty breathing due to that. No chest pain. No cough. No difficulty controlling secretions. Has never had this before. He does take lisinopril. Review of systems: As per history of present illness and below otherwise all systems reviewed and negative. Past medical history: As per history of present illness and as reviewed below otherwise noncontributory. Hypertension, coronary artery disease Surgical history: As per history of present illness and as reviewed below otherwise noncontributory. CABG Social history: No reported history of drug or alcohol abuse. Family history: As per history of present illness and as reviewed below otherwise noncontributory. Physical exam: GEN: no acute distress, well appearing HEENT: Atraumatic, normocephalic, mucous membranes moist, tongue and lip swelling, consistent with angioedema Neck: supple, nontender, trachea midline. Lungs: No respiratory distress. Heart: RRR Extremities: Atraumatic. Neurovascularly intact. Neuro: Awake, alert, oriented. Neuro Exam nonfocal. Skin: warm, dry, no lesions, no rash or urticaria Diagnostics: [] Therapeutics: [] MDM: Impression: [] Plan: [] Definitive disposition and diagnosis as appropriate pending reevaluation and review of above. - Related Data Allergies Allergy/AdvReac Type Severity Reaction Status Date / Time Codeine Allergy Hives Uncoded 02/24/20 00:15 Home Meds: Home Meds ClonazePAM [KlonoPIN] 0.5 mg PO DAILY 05/05/15 [History] Escitalopram [Lexapro] 20 mg PO DAILY 05/05/15 [History] Lisinopril 5 mg PO DAILY 05/05/15 [History] atorvaSTATin [Lipitor] 20 mg PO DAILY 05/05/15 [History] Insulin Aspart [NovoLOG] 3 unit SUBCUT ASDIRECTED 03/10/17 [History] Metoprolol Tartrate 10 mg BID 03/23/18 [History] Cinnamon Bark [Cinnamon] 1,200 mg PO BID 12/18/19 [History] Gabapentin [Neurontin] 600 mg PO TID 12/18/19 [History] Garlic mg PO DAILY 12/18/19 [History] Empagliflozin [Jardiance] 02/24/20 [History] [place]-3/DHA/Epa/Fish Oil [[place] 3 500 Softgel] 02/24/20 [History] Past Medical History HEENT History: Reports: Other (See Below) Other HEENT History: Diminished hearing on RIGHT Cardiovascular History: Reports: High Cholesterol, Hypertension, Stents Respiratory History: Reports: None Gastrointestinal History: Reports: None Genitourinary History: Reports: None Musculoskeletal History: Reports: Other (See Below) Other Musculoskeletal History: hx: Fracturing arm Neurological History: Reports: Other (See Below) Other Neuro History: Right Carpal Tunnel Release Psychiatric History: Reports: Anxiety, Panic Attack Other Psychiatric History: past hx: panic attacks, since starte med regimen no problems Endocrine/Metabolic History: Reports: Diabetes, Type II Other Endocrine/Metabolic History: implanted insulin pump Hematologic History: Reports: None Immunologic History: Reports: None Oncologic (Cancer) History: Reports: None Dermatologic History: Reports: None - Infectious Disease History Infectious Disease History: Reports: Chicken Pox - Past Surgical History Head Surgeries/Procedures: Reports: None HEENT Surgical History: Reports: None Cardiovascular Surgical History: Reports: Coronary Artery Bypass Respiratory Surgical History: Reports: None GI Surgical History: Reports: None Male Surgical History: Reports: None Endocrine Surgical History: Reports: None Neurological Surgical History: Reports: None Musculoskeletal Surgical History: Reports: Knee Replacement, Shoulder Surgery Oncologic Surgical History: Reports: None Dermatological Surgical History: Reports: None Social & Family History - Family History Family Medical History: Noncontributory Endocrine/Metabolic: Reports: Diabetes, type II - Caffeine Use Caffeine Use: Reports: Coffee - Living Situation & Occupation Living situation: Reports: ED ROS GENERAL - Review of Systems Review Of Systems: See Below (see HPI) ED EXAM, GENERAL - Physical Exam Exam: See Below (see HPI) Course - Vital Signs Text/Narrative:: Suspect DEX induced angioedema. Patient with no respiratory distress or airway compromise at the current time. Will attempt TXA Exam not consistent with anaphylaxis or severe allergic reaction. Improved after TXA and observed for hours with no worsening or recurrence of symptoms. Patient feeling well and airway protected, widely patent with minimal swelling at time of reevaluation. Stable for discharge Last Recorded V/S: Last Vital Signs Temp 98.2 F 02/23/20 22:45 Pulse 64 02/24/20 01:59 Resp 20 02/24/20 01:59 BP 131/71 02/24/20 01:59 Pulse Ox 93 L 02/24/20 01:59 - Orders/Labs/Meds Meds: Medications Discontinued Medications Generic Name Dose Route Start Last Admin Trade Name Freq PRN Reason Stop Dose Admin Tranexamic Acid 1,000 mg/ 110 mls @ 600 mls/hr 02/23/20 22:53 02/23/20 23:33 Sodium Chloride IV 02/23/20 23:03 600 mls/hr ONETIME ONE Administration - Re-Assessments/Exams Free Text/Narrative Re-Assessment/Exam: 02/24/20 00:35 Patient has received the TXA and is now feeling much better. He reports that his mouth and tongue feel much less swollen. On reexamination his tongue and mouth do appear much less swollen than previously. Continue to monitor the patient for 1 more hour and if feeling better patient will likely be able to go home. 02/24/20 01:48 Patient is still feeling well and in no acute distress. He reports his swelling feels significantly improved. On reexamination his swelling is significantly improved and much less than on arrival here and even on previous reassessment. Patient feels well enough to be discharged home at this time. No signs of airway compromise or obstruction. Discussed with patient her strict return instructions and absolute avoidance of any further DEX inhibitors. Discussed need to follow-up with PCP. Departure - Departure Time of Disposition: 01:49 Disposition: Home, Self-Care 01 Clinical Impression: Angio-edema, DEX inhibitor-aggravated angioedema - Discharge Information Instructions: Angioedema, [id number] Referrals: Ange Patterson PA [Primary Care Provider] - 2 Days Forms: ED Department Discharge Additional Instructions: Please call your primary care physician to be reevaluated and started on a different blood pressure medication. Do not take the lisinopril ever again. Return to the ER immediately if you develop swelling of your mouth or lips as you develop today, or if you develop any difficulty breathing, or rash. The following information is given to patients seen in the emergency department who are being discharged to home. This information is to outline your options for follow-up care. We provide all patients seen in our emergency department with a follow-up referral. The need for follow-up, as well as the timing and circumstances, are variable depending upon the specifics of your emergency department visit. If you don't have a primary care physician on staff, we will provide you with a referral. We always advise you to contact your personal physician following an emergency department visit to inform them of the circumstance of the visit and for follow-up with them and/or the need for any referrals to a consulting specialist. The emergency department will also refer you to a specialist when appropriate. This referral assures that you have the opportunity for follow-up care with a specialist. All of these measure are taken in an effort to provide you with optimal care, which includes your follow-up. Under all circumstances we always encourage you to contact your private physician who remains a resource for coordinating your care. When calling for follow-up care, please make the office aware that this follow-up is from your recent emergency room visit. If for any reason you are refused follow-up, please contact the [facility] Emergency Department at and asked to speak to the emergency department charge nurse. Sepsis Event Note (ED) - Focused Exam Vital Signs: Vital Signs Temp Pulse Resp BP Pulse Ox 02/24/20 01:59 64 20 131/71 93 L 02/24/20 00:00 66 20 140/75 96 02/23/20 22:45 98.2 F 65 20 142/77 H 92 L
[2020-02-24 01:59] VITALS: BP 131/71; PULSE 64
== END 2020-02-24 02:13 | disposition home or self-care (01) ==
LOC: MW.ED 22:42
DX: T78.3XXA Angioneurotic edema, initial encounter (principal); E78.00 Pure hypercholesterolemia, unspecified; I10 Essential (primary) hypertension; E11.9 Type 2 diabetes mellitus without complications; F41.9 Anxiety disorder, unspecified; Z79.4 Long term (current) use of insulin; Z88.5 Allergy status to narcotic agent; Z79.899 Other long term (current) drug therapy
CPT/HCPCS: 96365; 99283; J7050

== ENCOUNTER 2020-04-27 07:56 | Emergency (ER) | payer BC ==
[2020-04-27] MEDS ORDERED: Sodium Chloride 0.9% 1,000 ML IV ONE ×2 (08:05→08:34)
[2020-04-27] MEDS ORDERED: 50% Dextrose in Water 50 ML Syringe IVPUSH ONE (08:06)
[2020-04-27] MEDS ORDERED: EPINEPHrine 1 MG/1 ML Amp IVPUSH ONE ×9 (08:17→09:55)
--- NOTE | 2020-04-27 08:32 | EDM.PDOC ---
ED HPI GENERAL MEDICAL PROBLEM - General Chief Complaint: CPR in Progress Stated Complaint: CODE BLUE Time Seen by Provider: 04/27/20 08:26 - History of Present Illness INITIAL COMMENTS - FREE TEXT/NARRATIVE: 50-year-old male known Covid positive he had an exposure at work tested + 1 week ago. Was doing OK for the first few days. Over the last 2-3 has had more restlessness and difficulty sleeping. This AM he and his were walking outside when he had a sudden collapse w/out prodrome. CPR was started and EMS was called. On EMS arrival patient was in PEA and a Eloy Airway was placed. Further hx unavailable due to clinical condition. Treatments GLOBAL PROFESSIONAL: Reports: CPR, Intubation, IV/IO, Other Medication(s) Other Treatments GLOBAL PROFESSIONAL: EPI ED ROS GENERAL - Review of Systems Review Of Systems: Unable To Obtain Reason Not Obtained: clinical condition ED EXAM, GENERAL - Physical Exam Exam: See Below ED GENERAL MEDICAL PROCEDURES - Endotracheal Intubation ET Intubation Indication: Cardiac Arrest Preparation: Suction, Balloon Tested, BVM Set Up Pre-Oxygenation: Assisted with BVM Placement: Orotracheal Cords Visualized: Yes, Grade 1 ETT Size In mm: 8 Number of Attempts: 1 Confirmed By: CO2 Indicator, Bilateral Breath Sounds, Chest Xray Tube Secured By: By RT Endotracheal Intubation Comment: Pt intubated with the glide scope, MAC 3 with an 8-0 tube with good first past success and tube secured at 24cm at the teeth. - Additional/Other Procedure(s) Other (Free Text) Procedure(s): Supervision of CPR: Standard ACLS protocol and CPR was supervised by myself for a total of 50 mins excluding time for intubation and any other procedures. Course - Orders/Labs/Meds Orders: Active Orders 24 hr Category Date Time Status EKG 12 Lead [EKG Documentation Completion] [RC] STAT Care 04/27/20 08:27 Active EKG Documentation Completion [RC] STAT Care 04/27/20 08:30 Active Gastrointestinal Tube Mgmt [RC] ASDIRECTED Care 04/27/20 08:21 Active Insert Urinary Catheter [OM.PC] Stat Care 04/27/20 08:20 Ordered Urinary Catheter Assessment [RC] ASDIRECTED Care 04/27/20 08:21 Active Chest 1V Frontal [CR] Stat Exams 04/27/20 08:21 Taken EPINEPHrine [Adrenalin] 1 mg Med 04/27/20 08:45 Active Dextrose 5% in Water 99 ml IV TITRATE Nasogastric Orogastric Tube Insertion [OM.PC] Stat Oth 04/27/20 08:20 Ordered Medication Orders Epinephrine HCl 1 mg/ Dextrose (/Water) 100 mls @ 58.513 mls/hr IV TITRATE SANTO; Protocol Labs: Laboratory Tests 04/27/20 04/27/20 04/27/20 Range/Units 08:06 08:06 08:06 WBC 7.46 (4.0-11.0) K/uL RBC 6.72 H (4.50-5.90) M/uL Hgb 16.9 (13.0-17.0) g/dL Hct 56.2 H (38.0-50.0) % MCV 83.6 (80.0-98.0) fL MCH 25.1 L (27.0-32.0) pg MCHC 30.1 L (31.0-37.0) g/dL RDW Std Deviation 52.8 (28.0-62.0) fl RDW Coeff of Narda 17 H (11.0-15.0) % Plt Count 191 (150-400) K/uL MPV 10.50 (7.40-12.00) fL Neut % (Auto) 67.6 (48.0-80.0) % Lymph % (Auto) 23.9 (16.0-40.0) % [place] % (Auto) 8.0 (0.0-15.0) % Eos % (Auto) 0.0 (0.0-7.0) % Baso % (Auto) 0.5 (0.0-1.5) % Neut # (Auto) 5.0 (1.4-5.7) K/uL Lymph # (Auto) 1.8 (0.6-2.4) K/uL [place] # (Auto) 0.6 (0.0-0.8) K/uL Eos # (Auto) 0.0 (0.0-0.7) K/uL Baso # (Auto) 0.0 (0.0-0.1) K/uL Nucleated RBC % 0.8 /100WBC Nucleated RBCs # 0 K/uL INR 1.24 APTT 39.3 H (18.6-31.3) SEC D-Dimer, Quantitative 15.72 H (0.0-0.50) mg/L FEU Sodium 135 L (136-148) mmol/L Potassium 5.6 H (3.5-5.1) mmol/L Chloride 98 (98-107) mmol/L Carbon Dioxide 15.2 L (21.0-32.0) mmol/L BUN 72 H (7.0-18.0) mg/dL Creatinine 6.1 H (0.8-1.3) mg/dL Est Cr Clr Drug Dosing TNP Estimated GFR (MDRD) 9.4 ml/min Glucose 58 L (74-106) mg/dL Calcium 9.3 (8.5-10.1) mg/dL Total Bilirubin 0.4 (0.2-1.0) mg/dL AST 4954 H (15-37) IU/L ALT 2114 H (14-63) IU/L Alkaline Phosphatase 70 (46-116) U/L Troponin I 2.342 H* (0.000-0.056) ng/mL Total Protein 7.4 (6.4-8.2) g/dL Albumin 2.8 L (3.4-5.0) g/dL Globulin 4.6 H (2.6-4.0) g/dL Albumin/Globulin Ratio 0.6 L (0.9-1.6) Urine Color Urine Appearance Urine pH (5.0-8.0) Ur Specific [place] (1.001-1.035) Urine Protein (NEGATIVE) mg/dL Urine Glucose (UA) (NEGATIVE) mg/dL Urine Ketones (NEGATIVE) mg/dL Urine Occult Blood (NEGATIVE) Urine Nitrite (NEGATIVE) Urine Bilirubin (NEGATIVE) Urine Urobilinogen (<2.0) EU/dL Ur Leukocyte Esterase (NEGATIVE) U Hyaline Cast (Auto) (0-2/LPF) Urine RBC (0-2/HPF) Urine WBC (0-5/HPF) Ur Epithelial Cells (NONE-FEW) Amorphous Sediment (NEGATIVE) Urine Bacteria (NEGATIVE) Fine Granular Casts (NEGATIVE) 04/27/20 Range/Units 08:20 WBC (4.0-11.0) K/uL RBC (4.50-5.90) M/uL Hgb (13.0-17.0) g/dL Hct (38.0-50.0) % MCV (80.0-98.0) fL MCH (27.0-32.0) pg MCHC (31.0-37.0) g/dL RDW Std Deviation (28.0-62.0) fl RDW Coeff of Narda (11.0-15.0) % Plt Count (150-400) K/uL MPV (7.40-12.00) fL Neut % (Auto) (48.0-80.0) % Lymph % (Auto) (16.0-40.0) % [place] % (Auto) (0.0-15.0) % Eos % (Auto) (0.0-7.0) % Baso % (Auto) (0.0-1.5) % Neut # (Auto) (1.4-5.7) K/uL Lymph # (Auto) (0.6-2.4) K/uL [place] # (Auto) (0.0-0.8) K/uL Eos # (Auto) (0.0-0.7) K/uL Baso # (Auto) (0.0-0.1) K/uL Nucleated RBC % /100WBC Nucleated RBCs # K/uL INR APTT (18.6-31.3) SEC D-Dimer, Quantitative (0.0-0.50) mg/L FEU Sodium (136-148) mmol/L Potassium (3.5-5.1) mmol/L Chloride (98-107) mmol/L Carbon Dioxide (21.0-32.0) mmol/L BUN (7.0-18.0) mg/dL Creatinine (0.8-1.3) mg/dL Est Cr Clr Drug Dosing Estimated GFR (MDRD) ml/min Glucose (74-106) mg/dL Calcium (8.5-10.1) mg/dL Total Bilirubin (0.2-1.0) mg/dL AST (15-37) IU/L ALT (14-63) IU/L Alkaline Phosphatase (46-116) U/L Troponin I (0.000-0.056) ng/mL Total Protein (6.4-8.2) g/dL Albumin (3.4-5.0) g/dL Globulin (2.6-4.0) g/dL Albumin/Globulin Ratio (0.9-1.6) Urine Color YELLOW Urine Appearance CLEAR Urine pH 5.0 (5.0-8.0) Ur Specific [place] >= 1.030 (1.001-1.035) Urine Protein 100 H (NEGATIVE) mg/dL Urine Glucose (UA) 500 H (NEGATIVE) mg/dL Urine Ketones NEGATIVE (NEGATIVE) mg/dL Urine Occult Blood NEGATIVE (NEGATIVE) Urine Nitrite NEGATIVE (NEGATIVE) Urine Bilirubin NEGATIVE (NEGATIVE) Urine Urobilinogen 0.2 (<2.0) EU/dL Ur Leukocyte Esterase NEGATIVE (NEGATIVE) U Hyaline Cast (Auto) 1-3 (0-2/LPF) Urine RBC 0-2 (0-2/HPF) Urine WBC 0-2 (0-5/HPF) Ur Epithelial Cells RARE (NONE-FEW) Amorphous Sediment LIGHT (NEGATIVE) Urine Bacteria NOT SEEN (NEGATIVE) Fine Granular Casts 0-2 (NEGATIVE) Meds: Medications Generic Name Dose Route Start Last Admin Trade Name Freq PRN Reason Stop Dose Admin Epinephrine HCl 1 mg/ Dextrose 100 mls @ 58.513 mls/hr 04/27/20 08:45 /Water IV TITRATE SANTO Protocol 0.1 MCG/KG/MIN Discontinued Medications Generic Name Dose Route Start Last Admin Trade Name Freq PRN Reason Stop Dose Admin Epinephrine HCl 1 mg/ Sodium 251 mls @ as directed 04/27/20 09:15 Chloride IV 04/27/20 09:16 .STK-MED ONE Epinephrine HCl 1 mg/ Sodium 251 mls @ as directed 04/27/20 09:35 Chloride IV 04/27/20 09:36 .STK-MED ONE Departure - Departure Time of Disposition: 10:21 Disposition: 20 Preliminary Cause of *Q: Cardiac Arrest Clinical Impression: COVID-19 with comorbid diabetes mellitus - Discharge Information Referrals: Ange Patterson PA [Primary Care Provider] - Forms: ED Department Discharge - My Orders Last 24 Hours: My Active Orders 04/27/20 08:20 Insert Urinary Catheter [OM.PC] Stat Nasogastric Orogastric Tube Insertion [OM.PC] Stat 04/27/20 08:21 Gastrointestinal Tube Mgmt [RC] ASDIRECTED Urinary Catheter Assessment [RC] ASDIRECTED Chest 1V Frontal [CR] Stat 04/27/20 08:27 EKG 12 Lead [EKG Documentation Completion] [RC] STAT 04/27/20 08:30 EKG Documentation Completion [RC] STAT 04/27/20 08:45 EPINEPHrine [Adrenalin] 1 mg Dextrose 5% in Water 99 ml IV TITRATE - Assessment/Plan Last 24 Hours: My Active Orders 04/27/20 08:20 Insert Urinary Catheter [OM.PC] Stat Nasogastric Orogastric Tube Insertion [OM.PC] Stat 04/27/20 08:21 Gastrointestinal Tube Mgmt [RC] ASDIRECTED Urinary Catheter Assessment [RC] ASDIRECTED Chest 1V Frontal [CR] Stat 04/27/20 08:27 EKG 12 Lead [EKG Documentation Completion] [RC] STAT 04/27/20 08:30 EKG Documentation Completion [RC] STAT 04/27/20 08:45 EPINEPHrine [Adrenalin] 1 mg Dextrose 5% in Water 99 ml IV TITRATE Assessment:: 50yoM, COVID + presents in cardiac arrest with PEA. CPR and ACLS was continued with multiple doses of epi and a single dose of D50 given the insulin pump noted in the RLQ of the abd (this was removed). The patient was intubated with an 8- 0 tube with good first past success. ROSC was obtained after approx 25min in the ED. I discussed the patient's condition with his who expressed a good understanding of the gravity of his condition. We did discuss halting the resuscitation. However, at final pulse check the patient obtained ROSC. Total time down w/out CPR was minimal < 5min. Total time of 45min. For details of timing please see separate nursing documentation. The patient had a 2nd brief PEA arrest. 1 round of epi was needed for ROSC and the patient now has sinus tachycardia with a rate in the low 100s. BP elevated 200s/100s. Pt remains hypoxic in the mid 70's with a PEEP of 13 and and FiO2 of 100% (TV 500, RR22). Pt discussed with Dr. Stone in the ED at [facility] and accepted for transfer. My preliminary interpretation of the chest x-ray shows the ET tube in good position median sternotomy wires diffuse patchy opacities consistent with known coronavirus. Pt had a brief 3rd arrest with 2 rounds of epi. Pt now again in sinus tachycardia with a pulse. K 5.6 on CMP and will give Ca. Epi gtt at 0.2 mcg/kg/min. 0947: Patient has had multiple additional cardiac arrest each time he takes more more epinephrine for him to respond. Had another long discussion with the patient's . He states that he would not want this to continue she requested we make him DNR and that we do not fly him so that he can pass away here. Flight is been canceled. Patient is now DNR we will allow natural . 1020: The patient at 1017. Asystole on the monitor and no palpable pulse, etCO2 of 8.
[2020-04-27] MEDS ORDERED: EPINEPHrine 1 MG in Dextrose 5% in Water 99 ML IV SCH ×2 (08:45)
[2020-04-27 08:52] LABS: BLOOD UREA NITROGEN,BUN 72 mg/dL (7.0-18.0); CARBON DIOXIDE,CO2 15.2 mmol/L (21.0-32.0); CHLORIDE,CL 98 mmol/L (98-107); GLUCOSE RANDOM 58 mg/dL (74-106); POTASSIUM,K 5.6 mmol/L (3.5-5.1); SODIUM,NA 135 mmol/L (136-148)
[2020-04-27] MEDS ORDERED: Calcium Gluconate 10% 1 GM/10 ML SDV IVPUSH ONE (09:08)
--- NOTE | 2020-04-27 09:11 | PCM.SN.2 ---
- Free Text/Narrative Note: Called to ER for Code Blue on arrival CPR is un progress; intubation performed by Dr Sanches see his notes. 18g IV started to Lt FA secured with tape and tegaderm. IV draws blood and flushes with ease.
--- NOTE | 2020-04-27 09:31 | CR ---
Indication: Confirm possession of gastric tube Technique: Supine image of the abdomen was acquired Comparison: None Findings: A nasogastric tube ends in the left upper quadrant likely in the stomach. There are dilated loops of bowel which may be related to an ileus or obstruction. On the supine image that includes the right upper quadrant, there is a question as stripe of air between the liver capsule and the parietal peritoneum. This could be a pneumoperitoneum. Additional imaging is advised unless this is a known process. A CT would be the study of choice Impression: 1. Possible pneumoperitoneum. Additional evaluation is advised unless this is in a process 2. Nasogastric tube ending in the stomach 3. Dilated bowel likely related to either an ileus or mechanical obstruction Dictated by Bang Arellano MD @ Apr 27 2020 9:25AM Signed by Dr. Bang Arellano @ Apr 27 2020 9:29AM
--- NOTE | 2020-04-27 10:56 | PCM.SN.2 ---
- Free Text/Narrative Note: EKG interpreted in real-time 0827 on 04/27/2020 demonstrates sinus tachycardia with a rate of 118 right bundle branch block Q waves inferiorly and anteriorly insistent with old myocardial infarction but no acute ischemia.
--- NOTE | 2020-04-27 12:10 | CR ---
EXAM DATE: 04/27/20 PATIENT'S AGE: 60 Patient: GERSON SCHMITT Facility: [facility] Site . Site : [id number] Study: [id number]-67/26/2020 9:25:57 AM Ordering Physician: Myron German Final Report: INDICATION: Identify position of tubes and lines. Assess for coiled tube. COMPARISON: November 18, 2019 TECHNIQUE: AP portable supine single view study FINDINGS: TUBES AND LINES: Endotracheal tube normally located. Nasogastric tube traverses the esophagus and ink in the stomach. I see no abnormal coiling of any tube. HEART AND MEDIASTINUM: Enlarged heart. Sternotomy.. LUNGS AND PLEURAL SPACES: Severe diffuse multifocal airspace disease.No visible pleural effusion or pneumothorax OSSEOUS STRUCTURES: Age-appropriate appearance. No acute focal finding. IMPRESSION: 1. Endotracheal tube and nasogastric tube appear to be normally located 2. Enlarged heart. Sternotomy. 3. Severe diffuse multifocal airspace disease new since the prior study Dictated by Bang Arellano MD @ Apr 27 2020 9:30AM ----- ADDENDUM ----- I discussed this case with Jillian Serrato RN at 9:30 a.m. on April 27, [address] Schmitt. Dictated by Bang Arellano MD @ Apr 27 2020 9:34AM Signed by: Bang Arellano MD @04/27/2020 9:35:31 AM (Electronic Signature) Report Signed by Proxy. ANGIE
[2020-04-28 18:50] VITALS: PULSE 140
[2020-04-28 18:52] VITALS: BP 85/55
== END 2020-04-27 11:34 | disposition expired ==
LOC: MERGE 07:56 → MW.ED 07:56
DX: I46.9 Cardiac arrest, cause unspecified (principal); U07.1 COVID-19; E11.9 Type 2 diabetes mellitus without complications
CPT/HCPCS: 31500; 36415; 43752; 51702; 71045; 74018; 80053; 81001; 84484; 85025; 85379; 85610; 85730; 92950; 93005; 94002; 96374; 96375; 99285; J0171; J0610; J7030; J7050